=== PATIENT | male | born 1960 | race Caucasian/White ===

== ENCOUNTER 2016-06-16 23:00 | Observation (INO) | payer OTHER ==
[~2016-06-16] VITALS: Ht 190.5 cm; Wt 121.0 kg
[~2016-06-16 23:00] MED LIST: AMBIEN5 MG PO; DIFLUCAN200 MG PO; LISINOPRIL10 MG PO; MAG6464 MG PO; METFORMIN HCL850 MG PO; NICOTINE T21 MG/24 H TOP; NORTRIPTYLINE H10 MG PO; PERCOCET1 TA1 PO; PROTONIX40 MG PO; REGLAN10 MG PO; XANAX0.5 MG PO
[2016-06-17] VITALS (13 sets, daily range): BP systolic 117–163; BP diastolic 76–109
--- NOTE | 2016-06-17 00:59 | ED ORDER SUMMARY ---
..... Patient: DESHAUN QUEEN OrderSheet [facility] VisitID: [id number] [address] [place] [address] 56y, M Registration Date/Time: 06/16/2016 ORDER SHEET Weight: 108.8 kg (stated) Allergies: Gabapentin, Iodine GENERAL ORDERS: CBC w Diff Urgent (23:06/16/2016 Maryellen HAMLIN) (Ack 23:15 AMcQuoid ER Tech1) (1:15 SRedmond) CMP Urgent (:06/16/2016 Maryellen HAMLIN) (Ack 23:15 AMcQuoid ER Tech1) (1:15 SRedmond) PT with INR Urgent (:06/16/2016 Maryellen HAMLIN) (Ack 23:15 Rocio ER Tech1) (1:15 SRedmond) PTT Urgent (:06/16/2016 Maryellen HAMLIN) (Ack 23:15 AMcQuoid ER Tech1) (1:15 SRedmond) Breathalyzer (23:54 06/16/2016 Maryellen HAMLIN) (0:04 HSoule) MEDICATION ORDERS: IV FLUIDS: IV Saline Lock (:06/16/2016 Maryellen HAMLIN) (23:20 HSoule) Heparin IV : initial bolus 80 units/kg, then 18 units/kg/hr for 4h (HIGH ALERT MEDICATION, NOW); Urgent (:06/17/2016 Maryellen HAMLIN) (Ack 1:13 HSoule) (1:56 HSoule) IV NS : initial bolus 250 mL (1000 mL/hr), then none - (NOW) (01:33 06/17/2016 RCollier R.N. verbal order read back to Maryellen HAMLIN) (1:37 RCollier R.N.) ORDER SHEET NOTES: [Electronically signed by Collette Pagan (04:06/17/2016)] [Electronically signed by Jose Fonseca MD (12:48 06/20/2016)] [Electronically locked/signed by Collette Pagan (04:06/17/2016)]
--- NOTE | 2016-06-17 00:59 | ED CLINICAL REPORT ---
Clinical Report - Physicians/Mid Levels [facility] [address] [place] [address] 06/16/2016 23:00 [id number] Time Seen: 23:13. Arrived- By private vehicle. Historian- patient. History limited by intoxication. Physical Exam limited by intoxication. HISTORY OF PRESENT ILLNESS Chief Complaint: LOWER EXTREMITY PAIN. This started about 2 weeks ago and is still present. It was gradual in onset and has been constant. Severity is described as being severe. It has become recently worse. The quality is noted to be aching, "pain" and similar to prior episodes. Symptoms located in the area of the right ankle, right leg and right foot. The patient has had redness and swelling. ( patient was diagnosed with a deep vein thrombosis and was hospitalized at [facility] for several days. He left AGAINST MEDICAL ADVICE bbut was provided with a prescription for Lovenox and Coumadin. He says that he has been taking it as prescribed however his girlfriend says that he has missed multiple doses of the Coumadin.). Patient denies an injury. Similar symptoms previously: Recent medical care: The patient was seen recently at another facility in the emergency department and hospitalized. REVIEW OF SYSTEMS No chills, fever, sweats, chest pain or cough. No difficulty breathing, palpitations, abdominal pain, constipation or diarrhea. No nausea, vomiting or urinary problems. All systems otherwise negative, except as recorded above. PAST HISTORY Problems: Gastroenteritis. Cholelithiasis. Neuropathy. Gastroesophageal Reflux Disease. C. Difficile Colitis. GI Bleeding. Dehydration. Abdominal Pain. Hematuria. DVT - Deep Venous Thrombosis. Ruptured Achilles. Seizure. Hypomagnesemia. Gastritis. Hypokalemia. Diarrhea. Vomiting. Hypertension. Hypercholesterolemia. Diabetes Mellitus. Additional Surgeries: Back Surgery. Medications: Coumadin Oral. Lovenox Subcutaneous. Lisinopril Oral. Nortriptyline HCl Oral. Allergies: Gabapentin. Iodine. SOCIAL HISTORY Current every day heavy tobacco smoker (cigarette)- 1 pack per day. Alcohol use. Last drink was just prior to arrival. Patient is a longstanding alcoholic. Under the influence in E.D. No drug use. Residence: He resides in a trailer. His girlfriend lives in a different abode on the same property. he lives alone. FAMILY HISTORY Denies family medical history. ADDITIONAL NOTES The nursing notes have been reviewed. PHYSICAL EXAM Vital Signs: 06/16/2016 23:01 BP: 138/83. HR: 94. RR: 20. O2 saturation: 99%. Temp: 97.7 F. Pain level now: 910. Have been reviewed. Appearance: Alert. He appears intoxicated and has ETOH on breath. Eyes: Pupils equal, round and reactive to light. ENT: Pharynx normal. Neck: Neck supple. CVS: Normal heart rate and rhythm. Heart sounds normal. Respiratory: No respiratory distress. Breath sounds normal. Abdomen: Soft and nontender. No organomegaly. Skin: Skin intact. Skin warm and dry. Extremities: Right leg: mild erythema and moderate tenderness and swelling. Moderate right-sided calf tenderness. LABS, X-RAYS, AND EKG Laboratory Tests: CBC w Diff: (DEX: 06/16/2016 23:15) ( [facility] 06[facility]16[facility] 23:37) Final results Test Result Flag Units (Reference) WHITE BLOOD COUNT 7.4 K/uL (4.5-11.5) RED BLOOD COUNT 3.80 L M/uL (4.50-5.90) HEMOGLOBIN 12.8 L gm/dL (13.5-17.5) HEMATOCRIT 37.5 L % (41.0-53.0) MEAN CELL VOLUME 99 fL (80-100) MEAN CORPUSCULAR HGB 34 pg (26-34) MEAN CORPUSCULAR HGB CONC 34 g/dL (31-37) RED CELL DISTRIBUTION WIDTH 17.6 H % (11.6-14.8) PLATELET COUNT 196 K/uL (150-400) LYMPH % 49.7 H % (25-40) MONO % 5.8 % (3-14) GRANULOCYTE % 44.5 PT with INR: (DEX: 06/16/2016 23:15) ( MsgRcvd 06/16/2016 23:33) Final results Test Result Flag Units (Reference) INR 1.1 (0.8-1.2) Low Intensity Therapy: INR 1.5-2.0 PT range 18.5-23.1Mod.Intensity Therapy: INR 2.0-3.0 PT range 23.1-31.5High Intensity Therapy: INR 2.5-3.5 PT range 27.4-35.5High Intensity Therapy 2: INR 3.0-4.0 PT range 31.5-39.3 APTT 31 SECONDS (24-34) CMP: (DEX: 06/16/2016 23:15) ( MsgRcvd 06/17/2016 00:25) Final results Test Result Flag Units (Reference) GLUCOSE 149 H mg/dL (70-110) BUN 14 mg/dL (7-18) CREATININE 0.8 mg/dL (0.6-1.3) Estimated GFR >60 mL/min Estimated GFR- >60 mL/min Note: Persistent reduction over 3 months in eGFR<60 mL/min/1.73 m2 defines CKD. Patients with eGFR values>=60 mL/min/1.73 m2 may also have CKD if evidence ofpersistent proteinuria. Additional information may be foundat www.kidney.org. SODIUM 142 mmol/L (136-145) POTASSIUM 3.8 mmol/L (3.5-5.1) CHLORIDE 106 mmol/L (98-107) CARBON DIOXIDE 30 mmol/L (21-32) CALCIUM 8.5 mg/dL (8.5-10.1) TOTAL PROTEIN 7.1 g/dL (6.4-8.2) ALBUMIN 3.3 g/dL (3.3-5.0) BILIRUBIN, TOTAL 0.1 mg/dL (0.0-1.0) ALKALINE PHOSPHATASE 184 H U/L (46-116) AST (SGOT) 38 H U/L (15-37) ALT (SGPT) 20.4 U/L (12-78) . PROGRESS AND PROCEDURES Course of Care: Patient is stable. Discussed case with on-call health care provider, (Elaina). Reviewed test results and need for additional work-up. Agreed upon treatment plan, need for patient follow-up and decision to place in observation. Health care provider will see patient in hospital. Consult obtained. Dr. Hull - he says that he can evaluate the patient in the morning to evaluate whether he is a candidate for an IVC filter. Case discussed. Phone consult only. Will see patient in the hospital. Patient/family counseled. Old medical records reviewed. (from [facility]). Disposition orders written (in [facility]). Disposition: Admitted. CLINICAL IMPRESSION Deep venous thrombosis of the right lower extremity. Alcohol intoxication. medication noncompliance. (Electronically signed by Jose Fonseca MD 06/20/2016 12:48)
--- NOTE | 2016-06-17 00:59 | ED NURSING NOTES ---
Clinical Report - Nurses [facility] [address] [place] [address] 06/16/2016 23:00 Patient: DESHAUN QUEEN TRIAGE Triage time 23:02 Jun 16 2016. Acuity: LEVEL 3. Chief Complaint: (DVT/Pain). SEPSIS SCREEN: Sepsis Screen: negative. Negative (no infection suspected/documented). RICHIE COMA SCORE: Richie Coma Scale: 15- eyes open spontaneously (4); best verbal response- oriented x 4 (5); best motor response- obeys commands (6). --23:07 Collette Pagan 23:01 06/16/16. BP: 138/83. HR: 94. RR: 20. O2 saturation: 99% on room air. Temp: 97.7 F (oral). Pain level now: 11/14. --23:07 Collette Pagan. Weight: 108.8 kg stated. Height/Length: 75 inches Per Patient. BMI: 30. --23:06 Collette Pagan. Medications Nortriptyline HCl Oral. --23:06 Collette Pagan Lisinopril Oral. --23:06 Collette Pagan Lovenox Subcutaneous. --23:06 Collette Pagan Coumadin Oral. --23:06 Collette Pagan. Medication/allergy information source: the patient. --23:07 Collette Pagan. Allergies Gabapentin. Iodine. --23:07 Collette Pagan. History Arrived by EMS. Historian: patient. Unaccompanied. ( Patient was diagnosed and treated for DVT in his right calf. He was treated at [facility]. He was started on anti-coagulation. He reports increasing pain that began about five hours ago.). Treatment INSIDE ACCOUNT EXECUTIVE: See EMS report. EMS treatment INSIDE ACCOUNT EXECUTIVE verbally communicated and report reviewed. See report. BP: 140 / 92. HR: 90. O2 saturation: 97 room air. SOCIAL HX: Heavy tobacco smoker (cigarette)- 1 pack per day. Occasional alcohol use. No drug use. No infectious disease exposure. ABUSE ASSESSMENT: No report of abuse. SELF HARM ASSESSMENT: A self harm assessment was performed. The patient answered "no" to the question "Have you recently felt down, depressed, or hopeless?", "Have you noticed less interest or pleasure in doing things?", "Do you have thoughts of harming or killing yourself?", "Are you here because you tried to hurt yourself?", "Have you ever tried to hurt yourself before today?", "Have you recently had thoughts about harming or killing others?" and "Do you have any dangerous items in your possession?". FALL RISK ASSESSMENT: Fall risk assessment completed. No fall risk identified. NUTRITIONAL RISK ASSESSMENT: The nutritional risk assessment revealed no deficiencies. FUNCTIONAL ASSESSMENT: Functional assessment: no impairments noted. LEARNING NEEDS ASSESSMENT: The learning needs assessment revealed no barriers. --23:07 Collette Pagan. PROBLEMS: Gastroenteritis. Cholelithiasis. Neuropathy. Gastroesophageal Reflux Disease. C. Difficile Colitis. GI Bleeding. Dehydration. Abdominal Pain. Hematuria. Abnormal Test. DVT - Deep Venous Thrombosis. Ruptured Achilles. Tetanus Status. Seizure. Hypomagnesemia. Gastritis. Hypokalemia. Diarrhea. Vomiting. Immunizations. Hypertension. Hypercholesterolemia. Diabetes Mellitus. --23: Collette Pagan Cholelithiasis [RuleOut]. --23:07 Collette Pagan. ADDITIONAL SURGERIES: Back Surgery. --23:07 Collette Pagan. Interventions ID band on patient. To treatment room. --23:07 Collette Pagan. PHYSICAL ASSESSMENT To room via stretcher. Patient gowned. GENERAL / NEURO / PSYCH: Alert. Oriented X 4. Appears in pain. Mood/affect abnormal (tearful). RESPIRATORY: Respirations not labored. CVS: Normal sinus rhythm noted. EXTREMITIES: 2+ pitting edema of the right lower extremity involving the foot, ankle and lower leg; 1+ pitting edema of the left lower extremity involving the foot, ankle and lower leg. Pain with weight bearing on RLE. SKIN: Skin is warm and dry. --23:09 Collette Pagan. NURSING PROGRESS NOTES The initial plan of care for this patient has been created This plan of care was discussed with the patient. Pulse oximeter and NIBP monitor placed on patient; monitor alarms on. Patient gowned. Reassurance given to the patient. Two patient identifiers checked. Call light placed in reach. Side rails up x 1. Bed placed in lowest position. Brakes of bed on. Patient ready for evaluation- chart flagged and ED physician notified. --23:10 Collette Pagan 23:20 06/16/2016 Site #1 started via IV in the left antecubital space with an 20g angiocath, with aseptic technique and good blood return; one attempt. Blood drawn: rainbow set. Labeled in the presence of the patient and sent to the lab. Saline lock flushed with 10 mL saline. --23:20 Collette Pagan Patient ID band checked for patient name and birthdate: patient confirmed. Blood samples drawn from the left antecubital space peripheral IV site with Vacutainer by nurse ; labeled in presence of the patient and sent to lab: rainbow set. Line flushed with 10 mL normal saline post blood draw. --23:20 Collette Pagan 23:42 Patient call light answered. Patient requesting RN, when explained that RN was with another patient and assistance offered by this tech, patient delinced. --23:56 McQuoid, Carol, ER Tech1 ( Patient asking for pain medication. Patient reassured that provider would be in to evaluate him shortly.). --23:58 Collette Pagan ( Writing RN and RN Cathi Beal responded to a patient calling out. RN's into room to find patient on floor. Patient states, " I needed to get my phone off the floor". Patient assisted back into bed. Provider notified. Patient asked to stay in bed unless assisted by staff.). --00:00 Collette Pagan ( Breathalyzer performed JOSR .252). --00:02 Melecio Pantoja ( Lab called RN to notify that dilutions will need to be made on patients blood.). --00:06 Collette Pagan ( Breathalyzer performed JOSR .247). --00:42 Melecio Pantoja 00:47 06/17/16. BP: 141/83. HR: 86. RR: 20. O2 saturation: 97% on room air. --00:47 Collette Pagan 01:23 06/17/2016 Site #2 started via IV in the right antecubital space with an 20g angiocath, with aseptic technique and good blood return; one attempt. Saline lock flushed with 10 mL saline (UltraSound guided IV start.). --01:23 Ragini Juarez R.N. 01:32 06/17/2016 Started bag #1 250 mL IV Fluids IV NS (Saline); at 999 mL/hr via site #2 via IV pump. Allergies verified and confirmed 5 rights. IV patency established. IV site checked: no pain, redness, or swelling. IV flushed thoroughly pre- and post-medication administration. --01:37 Ragini Juarez R.N. 01:36 06/17/2016 Site #2. Pain and swelling noted. Infiltration Scale: Grade 3- edema less than 1 inch with mild to moderate pain. --01:38 Ragini Juarez R.N. 01:37 06/17/2016 Site #2 removed. Catheter intact. Pressure dressing and bandage applied. --01:38 Ragini Juarez R.N. 01:37 06/17/2016 IV Fluids IV NS Discontinued: bag #1 STOPPED. Total amount infused: 50 mL (Pt complained of pain at IV site. localized swelling noted.). --01:37 Ragini Juarez R.N. 01:56 06/17/2016 Site #3 started via IV in the right wrist with an 22g angiocath, with aseptic technique and good blood return; one attempt. Saline lock flushed with 10 mL saline. --01:56 Collette Pagan 01:56 06/17/2016 Heparin IVP 8700 unit given over 1 minute(s) via site #3. Allergies verified and confirmed 5 rights. IV patency established. IV site checked: no pain, redness, or swelling. IV flushed thoroughly pre- and post-medication administration. --01:56 Collette Pagan <<STRICKEN ENTRY-- 01:56 06/17/2016 Started bag #1 500 mL IV Fluids IV NS (Saline); at 1950 unit/hr over 4 hour(s) via site #3 via IV pump. Allergies verified and confirmed 5 rights. IV patency established. IV site checked: no pain, redness, or swelling. IV flushed thoroughly pre- and post-medication administration. --01:56 Collette Pagan --END STRIKE>> Correction. --01:57 Collette Pagan 01:59 06/17/2016 Heparin IVP 1950 unit given over 1 hour(s) via site #3. Allergies verified and confirmed 5 rights. IV patency established. IV site checked: no pain, redness, or swelling. IV flushed thoroughly pre- and post-medication administration. IVP given by RN (500 ml bag of heparin containing [id number] U. Running 1950 U/hr for four hours.). --:59 Collette Pagan ( Provider aware of vitals). --02:00 Collette Pagan 01:59 06/17/16. BP: 124/74. HR: 86. RR: 20. O2 saturation: 93% on room air. Pain level now: 11/14. --02:00 Collette Pagan. DISPOSITION / DISCHARGE 02:06/17/16. Condition at departure: stable. Fall risk assessment completed. Risk factors identified include patient history of fall. Fall interventions initiated. Patient placed on stretcher. Side rails up x1. Brakes on Bed in low position. Patient identified as a fall risk by ID band. Call light in reach of patient. Instructed not to get up without assistance. Report was given to a nurse via a phone call. All questions were answered. Report was acknowledged and care was transferred. (Daphnie CASTAÑEDA). Bed obtained. Patient's personal items include: shirt, pants, shoes and cell phone; items were given to the patient and transported with the patient. --02:09 Collette Pagan 02:06/17/16. BP: 126/80. HR: 88. RR: 20. O2 saturation: 95% on room air. Temp: 98 F (oral). Pain level now: 11/14. --02:10 Collette Pagan 02:06/17/2016 Site #[address] upon admission; patent, no pain and no signs of infection or infiltration; flushes easily. --02:10 Collette Pagan 02:06/17/2016 Site #[address] upon admission; patent, no pain and no signs of infection or infiltration. No blood return present. Converted to saline lock and flushed with 10 mL saline. --02:10 Collette Pagan Transported via stretcher by tech with IV. --02:20 Collette Pagan. Locked/Released at 06/17/2016 4:23 by Collette Pagan,
--- NOTE | 2016-06-17 00:59 | ED CLINICAL REPORT ---
Clinical Report - Physicians/Mid Levels [facility] [address] [place] [address] 06/16/2016 23:00 [id number] Time Seen: 23:13. Arrived- By private vehicle. Historian- patient. History limited by intoxication. Physical Exam limited by intoxication. HISTORY OF PRESENT ILLNESS Chief Complaint: LOWER EXTREMITY PAIN. This started about 2 weeks ago and is still present. It was gradual in onset and has been constant. Severity is described as being severe. It has become recently worse. The quality is noted to be aching, "pain" and similar to prior episodes. Symptoms located in the area of the right ankle, right leg and right foot. The patient has had redness and swelling. ( patient was diagnosed with a deep vein thrombosis and was hospitalized at [facility] for several days. He left AGAINST MEDICAL ADVICE bbut was provided with a prescription for Lovenox and Coumadin. He says that he has been taking it as prescribed however his girlfriend says that he has missed multiple doses of the Coumadin.). Patient denies an injury. Similar symptoms previously: Recent medical care: The patient was seen recently at another facility in the emergency department and hospitalized. REVIEW OF SYSTEMS No chills, fever, sweats, chest pain or cough. No difficulty breathing, palpitations, abdominal pain, constipation or diarrhea. No nausea, vomiting or urinary problems. All systems otherwise negative, except as recorded above. PAST HISTORY Problems: Gastroenteritis. Cholelithiasis. Neuropathy. Gastroesophageal Reflux Disease. C. Difficile Colitis. GI Bleeding. Dehydration. Abdominal Pain. Hematuria. DVT - Deep Venous Thrombosis. Ruptured Achilles. Seizure. Hypomagnesemia. Gastritis. Hypokalemia. Diarrhea. Vomiting. Hypertension. Hypercholesterolemia. Diabetes Mellitus. Additional Surgeries: Back Surgery. Medications: Coumadin Oral. Lovenox Subcutaneous. Lisinopril Oral. Nortriptyline HCl Oral. Allergies: Gabapentin. Iodine. SOCIAL HISTORY Current every day heavy tobacco smoker (cigarette)- 1 pack per day. Alcohol use. Last drink was just prior to arrival. Patient is a longstanding alcoholic. Under the influence in E.D. No drug use. Residence: He resides in a trailer. His girlfriend lives in a different abode on the same property. he lives alone. FAMILY HISTORY Denies family medical history. ADDITIONAL NOTES The nursing notes have been reviewed. PHYSICAL EXAM Vital Signs: 06/16/2016 23:01 BP: 138/83. HR: 94. RR: 20. O2 saturation: 99%. Temp: 97.7 F. Pain level now: 910. Have been reviewed. Appearance: Alert. He appears intoxicated and has ETOH on breath. Eyes: Pupils equal, round and reactive to light. ENT: Pharynx normal. Neck: Neck supple. CVS: Normal heart rate and rhythm. Heart sounds normal. Respiratory: No respiratory distress. Breath sounds normal. Abdomen: Soft and nontender. No organomegaly. Skin: Skin intact. Skin warm and dry. Extremities: Right leg: mild erythema and moderate tenderness and swelling. Moderate right-sided calf tenderness. LABS, X-RAYS, AND EKG Laboratory Tests: CBC w Diff: (DEX: 06/16/2016 23:15) ( [facility] 06/16/2016 23:37) Final results Test Result Flag Units (Reference) WHITE BLOOD COUNT 7.4 K/uL (4.5-11.5) RED BLOOD COUNT 3.80 L M/uL (4.50-5.90) HEMOGLOBIN 12.8 L gm/dL (13.5-17.5) HEMATOCRIT 37.5 L % (41.0-53.0) MEAN CELL VOLUME 99 fL (80-100) MEAN CORPUSCULAR HGB 34 pg (26-34) MEAN CORPUSCULAR HGB CONC 34 g/dL (31-37) RED CELL DISTRIBUTION WIDTH 17.6 H % (11.6-14.8) PLATELET COUNT 196 K/uL (150-400) LYMPH % 49.7 H % (25-40) MONO % 5.8 % (3-14) GRANULOCYTE % 44.5 PT with INR: (DEX: 06/16/2016 23:15) ( MsgRcvd 06/16/2016 23:33) Final results Test Result Flag Units (Reference) INR 1.1 (0.8-1.2) Low Intensity Therapy: INR 1.5-2.0 PT range 18.5-23.1Mod.Intensity Therapy: INR 2.0-3.0 PT range 23.1-31.5High Intensity Therapy: INR 2.5-3.5 PT range 27.4-35.5High Intensity Therapy 2: INR 3.0-4.0 PT range 31.5-39.3 APTT 31 SECONDS (24-34) CMP: (DEX: 06/16/2016 23:15) ( MsgRcvd 06/17/2016 00:25) Final results Test Result Flag Units (Reference) GLUCOSE 149 H mg/dL (70-110) BUN 14 mg/dL (7-18) CREATININE 0.8 mg/dL (0.6-1.3) Estimated GFR >60 mL/min Estimated GFR- >60 mL/min Note: Persistent reduction over 3 months in eGFR<60 mL/min/1.73 m2 defines CKD. Patients with eGFR values>=60 mL/min/1.73 m2 may also have CKD if evidence ofpersistent proteinuria. Additional information may be foundat www.kidney.org. SODIUM 142 mmol/L (136-145) POTASSIUM 3.8 mmol/L (3.5-5.1) CHLORIDE 106 mmol/L (98-107) CARBON DIOXIDE 30 mmol/L (21-32) CALCIUM 8.5 mg/dL (8.5-10.1) TOTAL PROTEIN 7.1 g/dL (6.4-8.2) ALBUMIN 3.3 g/dL (3.3-5.0) BILIRUBIN, TOTAL 0.1 mg/dL (0.0-1.0) ALKALINE PHOSPHATASE 184 H U/L (46-116) AST (SGOT) 38 H U/L (15-37) ALT (SGPT) 20.4 U/L (12-78) . PROGRESS AND PROCEDURES Course of Care: Patient is stable. Discussed case with on-call health care provider, (Elaina). Reviewed test results and need for additional work-up. Agreed upon treatment plan, need for patient follow-up and decision to place in observation. Health care provider will see patient in hospital. Consult obtained. Dr. Hull - he says that he can evaluate the patient in the morning to evaluate whether he is a candidate for an IVC filter. Case discussed. Phone consult only. Will see patient in the hospital. Patient/family counseled. Old medical records reviewed. (from [facility]). Disposition orders written (in [facility]). Disposition: Admitted. CLINICAL IMPRESSION Deep venous thrombosis of the right lower extremity. Alcohol intoxication. medication noncompliance. (Electronically signed by Jose Fonseca MD 06/20/2016 12:48)
--- NOTE | 2016-06-17 00:59 | ED ORDER SUMMARY ---
..... Patient: DESHAUN QUEEN OrderSheet [facility] VisitID: [id number] [address] [place] [address] 56y, M Registration Date/Time: 06/16/2016 ORDER SHEET Weight: 108.8 kg (stated) Allergies: Gabapentin, Iodine GENERAL ORDERS: CBC w Diff Urgent (23:06/16/2016 Maryellen HAMLIN) (Ack 23:15 AMcQuoid ER Tech1) (1:15 SRedmond) CMP Urgent (:06/16/2016 Maryellen HAMLIN) (Ack 23:15 AMcQuoid ER Tech1) (1:15 SRedmond) PT with INR Urgent (:06/16/2016 Maryellen HAMLIN) (Ack 23:15 Rocio ER Tech1) (1:15 SRedmond) PTT Urgent (:06/16/2016 Maryellen HAMLIN) (Ack 23:15 AMcQuoid ER Tech1) (1:15 SRedmond) Breathalyzer (23:54 06/16/2016 Maryellen HAMLIN) (0:04 HSoule) MEDICATION ORDERS: IV FLUIDS: IV Saline Lock (:06/16/2016 Maryellen HAMLIN) (23:20 HSoule) Heparin IV : initial bolus 80 units/kg, then 18 units/kg/hr for 4h (HIGH ALERT MEDICATION, NOW); Urgent (:06/17/2016 Maryellen HAMLIN) (Ack 1:13 HSoule) (1:56 HSoule) IV NS : initial bolus 250 mL (1000 mL/hr), then none - (NOW) (01:33 06/17/2016 RCollier R.N. verbal order read back to Maryellen HAMLIN) (1:37 RCollier R.N.) ORDER SHEET NOTES: [Electronically signed by Collette Pgaan (04:06/17/2016)] [Electronically signed by Jose Fonseca MD (12:48 06/20/2016)] [Electronically locked/signed by Collette Pagan (04:06/17/2016)]
[2016-06-17] MEDS ORDERED: SUMATRIPTAN SUC50 MG PO (06:54)
--- NOTE | 2016-06-17 09:36 | HISTORY AND PHYSICAL ---
ADMITTED: 06/17/2016 CHIEF COMPLAINT: 1. Right foot pain. HISTORY OF PRESENT ILLNESS: This is a 56-year-old male who had pneumonia 1 month ago and was hospitalized at [facility] and then returned to [place] last Tuesday with complaints of right lower extremity swelling, diagnosed with a deep vein thrombosis, hospitalized until Tuesday, discharged on Tuesday. He started Coumadin on Tuesday claims he has been taking his Lovenox. Despite that claim, his girlfriend states that all of his Coumadin are still in the bottle since Tuesday. The patient presented to the emergency department last night with complaints of worsening right foot pain and requesting pain medications. The patient does state that he quit drinking 2 months ago, but last night when the pain got so bad he relapsed and drank alcohol again. Overnight, the patient has started complaining of left-side pain as well that is constant, but waxes and wanes. The patient does state that he has diarrhea and has for the past 3 years, which is not worse than it has been. He denies any nausea, vomiting, or constipation. He denies any dysuria. He is not having any heartburn currently, but does have GERD and takes pantoprazole. MEDICAL/SURGICAL HISTORY: Past medical history: Insomnia, GERD, history of DVT after laying in bed from an Achilles tear numerous years ago. Past surgical history: Laparoscopic cholecystectomy several months ago. MEDICATIONS: 1. Nortriptyline, unknown dose, 3 tabs p.o. every night at bedtime. 2. Ambien p.r.n. 3. Xanax. 4. Protonix. 5. Zantac. The patient did not know any of the dosages of these medications; however, he does go to the [facility] in [place]. ALLERGIES: 1. GABAPENTIN. 2. IODINE. SOCIAL HISTORY: The patient lives alone. He denies any drug use. He does have a history of alcohol abuse, quit 2 months ago, and then relapsed last night. The patient has [id number] of smoking and continues to smoke at a rate of 1 pack per day. FAMILY HISTORY: Sister with hypertension and type 2 diabetes. Brother from a suicide. Mother with some type of "blood cancer" per the patient. REVIEW OF SYSTEMS: Full 12 poiont ROS completed and negative except as positive per HPI. PHYSICAL EXAMINATION: VITAL SIGNS: Blood pressure 124/93, pulse 92, respiratory rate is 22, O2 saturation 99% on room air, T-max is 36.4 degrees Celsius. GENERAL: This is a well-appearing male, lying in bed, in no apparent distress, sleeping. HEENT: Head is atraumatic, normocephalic. Pupils are equal, round, and reactive to light with accommodation bilaterally. Extraocular muscles are intact bilaterally. Oropharynx is nonerythematous without exudates and moist. NECK: Trachea is midline. There is no JVD. HEART: S1, S2, regular rate and rhythm. No S3, S4, murmurs, gallops, or rubs. LUNGS: Mild expiratory wheezing diffusely, but no crackles. ABDOMEN: Soft, nondistended without hepatosplenomegaly or masses. Bowel sounds are active. The patient does have some very mild left-sided tenderness, but without peritoneal signs and he has some left flank pain. He has no left upper quadrant pain. The patient does have 2+ right lower extremity edema and trace to 1+ lower extremity edema on the left. LAB/IMAGING: Sodium is 142, potassium 3.8, chloride 106, bicarbonate of 30, BUN of 14, creatinine of 0.8, glucose of 149, calcium of 8.5. Total protein is 7.1, albumin 3.3, total bilirubin 0.1, alkaline phosphatase of 184, AST of 38, ALT of 20.4. White blood cell count 7.4, hemoglobin of 12.8, hematocrit of 31.5, platelets of 196. INR 1.1. IMPRESSION: 1. This is a 56-year-old male with a recent history of pneumonia one month ago and now deep vein thrombosis diagnosed on Tuesday, who has a history of alcohol abuse and was intoxicated and not taking his Coumadin. There is significant concern that this patient may not reliably take his Coumadin and/or Lovenox due to his substance abuse. The patient was acutely intoxicated when he was admitted last night as it was deemed that he was not safe to be discharged home. PLAN: 1. Fluids, electrolytes, nutrition. The patient will be n.p.o. in anticipation of possible surgery later today. He will get a banana bag due to his alcohol abuse. 2. Hematology. The patient has a known deep vein thrombosis in his lower extremity and it is questionable whether he is reliably taking his Lovenox and/or Coumadin. It has been suggested that an IVC filter be considered and surgery has been consulted for this. 3. Gastrointestinal/genitourinary: The patient is complaining of left lateral flank pain. One might consider a kidney stone versus pyelonephritis versus intestinal etiology versus less likely pancreatitis. Lipase and amylase have been added to his labs. The patient also has known gastroesophageal reflux disease and is n.p.o. His home dose of pantoprazole has been restarted. 4. Psychiatric: Substance abuse. The patient will be on the ETOH withdrawal protocol. 5. Prophylaxis: The patient is currently on heparin and is on pantoprazole for gastrointestinal prophylaxis. 6. CODE STATUS: FULL CODE.
--- NOTE | 2016-06-17 16:02 | CONSULTATION REPORT ---
DATE OF CONSULTATION: 06/17/2016 REFERRING PHYSICIAN: Migdalia Delaney MD CONSULTING PHYSICIAN: Theo Hull MD CHIEF COMPLAINT: 1. DVT of right leg HISTORY OF PRESENT ILLNESS: The patient is a 56-year-old man who was diagnosed with deep vein thrombosis in the right leg when he presented to the [place] emergency department with leg pain and swelling. He reports a remote history of a deep vein thrombosis on the left leg many years ago when he tore his Achilles tendon and was treated at that time with anticoagulants. On this occasion, he was started on Lovenox and started Coumadin 3 days ago. Apparently his girlfriend reports he did not actually take any of his Coumadin. He was in the emergency department with worsening foot pain. He also has a history of alcoholism and quit drinking about 2 months ago. There is a previous history of multiple GI bleeds and multiple endoscopies. He apparently started drinking when the pain in his leg got worse. There was a report in the chart of hematuria, but in this case, nausea, vomiting, and fear of recurrent GI bleeding seem to be the main motivating factors for this consultation. There was a request made to consider placement of a [place] filter due to this patient's prohibitive risk of bleeding and his presence or worrisome deep vein thrombosis. MEDICAL/SURGICAL HISTORY: Medical history of insomnia, GERD, DVT. Past surgery: Laparoscopic cholecystectomy a few months ago. MEDICATIONS: 1. Nortriptyline, dose unknown. 2. Ambien -------. 3. Xanax -------. 4. Protonix. 5. Zantac. ALLERGIES: 1. GABAPENTIN. 2. IODINE. SOCIAL HISTORY: The patient lives alone. He does not use drugs other than alcohol, quit about 2 months ago, but had a relapse. He smokes about 1 pack per day. FAMILY HISTORY: His brother was a suicide. Mother had some type of blood malignancy. Sister has hypertension and diabetes. REVIEW OF SYSTEMS: A multipoint review of systems was not documented at this time, but the patient denies other problems other than the sore leg. PHYSICAL EXAMINATION: GENERAL: He is alert and cooperative. He does not appear to be shaky or tremulous. HEENT: His ears and nose demonstrate no gross external lesions. Eyes are equal. He is anicteric. NECK: Without palpable mass or thyromegaly. CHEST: Clear, without wheeze or rales. HEART: Regular, without murmur or gallop. ABDOMEN: Reveals no ascites. No hepatosplenomegaly that I can palpate. No caput medusae. EXTREMITIES: The lower extremity reveals tenderness in the calf, which extends about a third of the way up the posterior thigh, but not all the way to the groin. There is some mild edema also seen. LAB/IMAGING: Lab tests were reviewed. I do not see an INR currently in the chart. The patient has some left flank pain additionally noted and was thought to perhaps have a kidney stone as a potential etiology. His studies were reviewed, and imaging studies on hand all seem to date from 2012 and 2014. In 2015, he had renal ultrasound due to hematuria at that point, with no clear etiology identified. His lab tests show a hemoglobin and hematocrit of 11.5 and 33.8, white count of 6.4, platelet count is 169. Coagulation studies are not on the computer. His chemistries show normal protein , mildly elevated AST and alkaline phosphatase, normal amylase and lipase. IMPRESSION: 1. Deep vein thrombosis 2. Alcoholism and history of gastrointestinal bleeds PLAN: At this point, I discussed with the patient the pros and cons of placing a [place] filter. The patient is interested in proceeding with one, as he is worried about the risk of a pulmonary embolism. I explained to him that alternatives at this point would the use of anticoagulants, but that this could also entail a significant risk of gastrointestinal bleeding, especially given his history. The patient would prefer to have a Misty in place at this point. I explained to him some of the risks, such as displacement, perforation, embolization, eventual failure. I explained we would use a percutaneously removable Misty, and that this could be removed at some point in the future if he so desired. He was made aware of some of the local risks, such as bleeding at the puncture site, premature or improper location, injury to local structures of the puncture site, and other such as potential problems. He would like to proceed as described.
--- NOTE | 2016-06-17 17:42 | DIAGNOSTIC IMAGING REPORT ---
PROCEDURE: XR FLUOROSCOPY UP TO 1 HOUR INDICATION: PLACEMENT OF [place]ARO FILTER TECHNIQUE: C-arm fluoroscopy provided to Dr. Hull for placement of IVC filter. Fluoroscopy time 1.21 minutes (63.9 mGy). COMPARISON: None. FINDINGS: Abdominal radiograph demonstrates a surgical clamp overlying the lumbar spine (reportedly at the L2 level). Subsequently, there is placement of a [place] filter at the L2 level. IMPRESSION: 1. C-arm fluoroscopy for placement of inferior vena cava filter (performed by Dr. Hull).
--- NOTE | 2016-06-17 18:47 | Progress Note ---
Subjective General has left flank pain no chest pain or shortnessof breath Physical Exam Vital Signs / I&Os Vital Signs Date Time Temp Pulse Resp B/P Pulse O2 O2 Flow FiO2 Ox Delivery Rate 06/17 1830 97.5 96 18 157/100 96 Nasal 1.0 Cannula 06/17 1815 97.5 85 18 163/101 97 Nasal 1.0 Cannula 06/17 1802 97.9 87 18 150/103 98 Nasal 1.0 Cannula 06/17 1740 85 11 163/84 100 06/17 1735 97.9 86 10 155/90 95 06/17 1730 90 12 158/86 95 06/17 1725 91 12 158/90 95 06/17 1720 92 15 155/90 94 06/17 1715 84 17 153/86 100 06/17 1710 96.8 82 17 146/89 98 Mask 6.0 06/17 1435 97.9 78 18 134/90 96 Room Air 06/17 1015 Room Air 06/17 1010 97.5 89 18 120/80 93 Room Air 06/17 0629 97.5 83 20 140/100 94 Room Air 06/17 0241 97.5 92 22 124/93 99 Room Air General Appearance Alert, Oriented X3, Cooperative, No acute distress Lungs Clear to auscultation Cardiovascular Regular rate and rhythm Abdomen Soft, No tenderness, No guarding Extremities No cyanosis, No edema, Normal pulses Neurological No lateralizing signs Assessment and Plan Problem List 1. DVT (deep venous thrombosis) Plan patient had IVC filter placed today continue lovenox and coumadin check INR in am has hx of xchronic etoh use monitor for signs of withdrawal 2. Subtherapeutic anticoagulation 3. Alcohol intoxication
--- NOTE | 2016-06-17 20:11 | OPERATIVE REPORT ---
DATE OF SURGERY: 06/17/2016 SURGEON: Theo Hull MD PREOPERATIVE DIAGNOSES: 1. Recurrent deep vein thrombosis 2. History of gastrointestinal bleed POSTOPERATIVE DIAGNOSIS: 1. deep vein thrombosis 2. history of recurrent GI bleeds PROCEDURE PERFORMED: 1. Inferior vena caval filter placement ([place]) ANESTHESIA: General. INDICATIONS: The patient is a 56-year-old man who presented with leg pain and deep vein thrombosis. He had a remote previous thrombosis on the other side. The patient was unreliable for use of Coumadin and also had a long history of alcoholism. The patient has had multiple upper GI endoscopies for gastrointestinal bleeds and was felt to be poor risk for conventional oral anticoagulation. SURGICAL TECHNIQUE: The patient was taken to the operating room by his choice, a general anesthetic was administered and patient prepped and draped in usual sterile fashion. Prior to prepping the patient, however, an examination was done with the SonoSite Doppler demonstrating patency and lack of clot in the groin, common femoral vein on the left side, which is the asymptomatic side. After sterile prep and drape, fluoroscopy was used to gina the L1-L2 disk location. Hemostat was placed at this location after counting the disks. The femoral vein was entered on first pass under ultrasonic guidance and the guidewire placed in the vena cava. The introducer sheath and dilator were inserted and positioned below the L2 vertebral body and a venogram performed with contrast. Note, the patient had listed a contrast allergy, but has had multiple CT scans and other contrast- related procedures more recently with no reaction to contrast. The contrast study demonstrated a generous vena cava, but less than 28 mm. The dilator was removed and a filter advanced. The filter was placed at about the L2 vertebral body below the renal arteries, but in the linear part of the vena cava and above the vena caval confluence with the iliacs. Heparinized flushing was used throughout the procedure to prevent buildup of clots in the apparatus. The introducer sheath was withdrawn, leaving the vena caval filter in a correct position. This was observed under fluoroscopy demonstrating stability and proper placement. The sheath was removed and pressure held at the groin until hemostasis was complete. Dressings were placed and the patient left in good condition.
[2016-06-18 02:35] VITALS: BP 101/59
[2016-06-18 06:38] VITALS: BP 133/89
[2016-06-18 10:10] VITALS: BP 132/79
--- NOTE | 2016-06-18 10:43 | Provider's Discharge Care Plan ---
Problem, Goal, Plan Problem List 1. Subtherapeutic anticoagulation Instructions: - c/w lovenox injections as you were taught - and continue taking the coumadin - follow up with your primary care doctor Dr Ricks within the next few days and obtain INR level 2. DVT (deep venous thrombosis) Instructions: Take meds as directed 3. Pulmonary embolism Instructions: Take meds as directed
[2016-06-18] MEDS ORDERED: PERCOCET1 TA1 PO ×2 (10:46→16:57)
--- NOTE | 2016-06-18 12:13 | Discharge Summary ---
Discharge Summary Report Admit Date 06/17/16 Discharge Date 06/18/16 Admission Diagnosis pulmonary embolus Discharge Diagnosis dvt and pulmonary embolus Brief History please refer to admission h&p for history Hospital Course Patient was admitted for PE after patient did not take any of his anticoagulation. Patient was admitted started on lovenox. Patient given his repeat episode of blood clot had a IVC filter placed. Patient tolerated the procedure well without any problems and resumed his anticoagulation. Patient at this point is ready for discharge. Patient will resume lovenox and coumadin. He will obtain an INR level here and will either bring it up with his primary care doctor or he was told he could even find me and I would be able to tell him to continue the coumadin or not. Patient will follow up with his PCP on the . General Appearance Alert, Oriented X3, No acute distress Lungs Clear to auscultation Cardiovascular Normal S1, Normal S2, Gallops, Rubs Abdomen Soft, No tenderness Neurological Normal speech, Normal tone, Sensation intact, Cranial nerves 3-12 NL Discharge Instructions/Meds - pt was advised to resume his lovenox injections and coumadin - he was told to have an INR drawn on Tuesday and to bring results to either me or his primary care doctor - he has an appointment for his primary care doctor on 06/24
--- NOTE | 2016-06-20 12:48 | ED MAR SUMMARY ---
..... Medication Administration Record [facility] [address] [place] [address] Patient: DESHAUN QUEEN Visit ID: [id number] 56y, M Weight: 108.8 kg Height/Length: 75 in BMI: 30 ALLERGIES: Gabapentin, Iodine Start 01:32 06/17/2016 Ragini Juarez RJobNJob, Stop 01:37 06/17/2016 Ragini Juarez R.N. Medication Administered: IV NS (SALINE), Dose: IV Fluids, Rate: 999 mL/hr, Dispensed: 250 mL bag, Site: #2 right AC. Medication Ordered: IV NS : initial bolus 250 mL (1000 mL/hr), then none - (NOW). Given 01:56 06/17/2016 Collette Pagan, Medication Administered: HEPARIN [IVP], Dose: 8700 unit IVP over 1 minute(s), Site: #3 right wrist. Medication Ordered: Heparin IV : initial bolus 80 units/kg, then 18 units/kg/hr for 4h (HIGH ALERT MEDICATION, NOW); Urgent. Given 01:59 06/17/2016 Collette Pagan, Medication Administered: HEPARIN [IVP], Dose: 1950 unit IVP over 1 hour(s), Site: #3 right wrist. Medication Ordered: Heparin IV : initial bolus 80 units/kg, then 18 units/kg/hr for 4h (HIGH ALERT MEDICATION, NOW); Urgent.
--- NOTE | 2016-06-20 12:48 | ED DISCHARGE INSTRUCTIONS ---
Patient: DESHAUN QUEEN General Instructions Merged [facility] VisitID: [id number] [address] [place] [address] 56y, M Registration Date/Time: 06/16/2016 Deep venous thrombosis of the right lower extremity. Alcohol intoxication. medication noncompliance. (Electronically signed by Jose Fonseca MD 06/20/2016 12:48)
--- NOTE | 2016-06-20 12:48 | ED MAR SUMMARY ---
..... Medication Administration Record [facility] [address] [place] [address] Patient: DESHAUN QUEEN Visit ID: [id number] 56y, M Weight: 108.8 kg Height/Length: 75 in BMI: 30 ALLERGIES: Gabapentin, Iodine Start 01:32 06/17/2016 Ragini Juarez RJobNJob, Stop 01:37 06/17/2016 Ragini Juarez R.N. Medication Administered: IV NS (SALINE), Dose: IV Fluids, Rate: 999 mL/hr, Dispensed: 250 mL bag, Site: #2 right AC. Medication Ordered: IV NS : initial bolus 250 mL (1000 mL/hr), then none - (NOW). Given 01:56 06/17/2016 Collette Pagan, Medication Administered: HEPARIN [IVP], Dose: 8700 unit IVP over 1 minute(s), Site: #3 right wrist. Medication Ordered: Heparin IV : initial bolus 80 units/kg, then 18 units/kg/hr for 4h (HIGH ALERT MEDICATION, NOW); Urgent. Given 01:59 06/17/2016 Collette Pagan, Medication Administered: HEPARIN [IVP], Dose: 1950 unit IVP over 1 hour(s), Site: #3 right wrist. Medication Ordered: Heparin IV : initial bolus 80 units/kg, then 18 units/kg/hr for 4h (HIGH ALERT MEDICATION, NOW); Urgent.
--- NOTE | 2016-06-20 12:48 | ED DISCHARGE INSTRUCTIONS ---
Patient: DESHAUN QUEEN General Instructions [facility] VisitID: [id number] [address] [place] [address] 56y, M Registration Date/Time: 06/16/2016 Deep venous thrombosis of the right lower extremity. Alcohol intoxication. medication noncompliance. (Electronically signed by Jose Fonseca MD 06/20/2016 12:48)
--- NOTE | 2016-06-20 12:48 | ED MED RECONCILIATION SUMMARY ---
Patient: DESHAUN QUEEN Medication Reconciliation Report [facility] VisitID: [id number] [address] [place] [address] 56y, M Registration Date/Time: 06/16/2016 Weight: 108.8 kg Height/Length: 75 in. BMI: 30.0 ALLERGIES: Gabapentin, Iodine The patient's Home Medications are listed below: THE FOLLOWING MEDICATIONS NEED TO BE RECONCILED: Coumadin Oral Lisinopril Oral Lovenox Subcutaneous Nortriptyline HCl Oral The source(s) of the original Home Medication information: patient The following Medications were given to the patient in the Emergency Department: IV NS IV Fluids bolus 0, then 999 mL/hr, administered: 06/17/2016 1:32:00 AM Heparin [IVP] IVP 8700 unit, administered: 06/17/2016 1:56:00 AM Heparin [IVP] IVP 1950 unit, administered: 06/17/2016 1:59:00 AM The following Medications were prescribed to the patient: None.
--- NOTE | 2016-06-20 12:48 | ED MED RECONCILIATION SUMMARY ---
Patient: DESHAUN QUEEN Medication Reconciliation Report [facility] VisitID: [id number] [address] [place] [address] 56y, M Registration Date/Time: 06/16/2016 Weight: 108.8 kg Height/Length: 75 in. BMI: 30.0 ALLERGIES: Gabapentin, Iodine The patient's Home Medications are listed below: THE FOLLOWING MEDICATIONS NEED TO BE RECONCILED: Coumadin Oral Lisinopril Oral Lovenox Subcutaneous Nortriptyline HCl Oral The source(s) of the original Home Medication information: patient The following Medications were given to the patient in the Emergency Department: IV NS IV Fluids bolus 0, then 999 mL/hr, administered: 06/17/2016 1:32:00 AM Heparin [IVP] IVP 8700 unit, administered: 06/17/2016 1:56:00 AM Heparin [IVP] IVP 1950 unit, administered: 06/17/2016 1:59:00 AM The following Medications were prescribed to the patient: None.
--- NOTE | 2016-06-21 12:42 | DIAGNOSTIC IMAGING REPORT ---
PROCEDURE: CTA THORAX WITH CONTRAST; FAILED EXAM INDICATION: LEFT SIDED CHEST PAIN FINDINGS: The patient was placed in the scanner and a insurance claims supervisor view was performed. However, the patient was unable to undergo the study due to claustrophobia. IMPRESSION: 1. Failed examination (CTA thorax).
--- NOTE | 2016-06-21 12:42 | DIAGNOSTIC IMAGING REPORT ---
PROCEDURE: CTA THORAX WITH CONTRAST; FAILED EXAM INDICATION: LEFT SIDED CHEST PAIN FINDINGS: The patient was placed in the scanner and a terra cotta roofer helper view was performed. However, the patient was unable to undergo the study due to claustrophobia. IMPRESSION: 1. Failed examination (CTA thorax).
== END 2016-06-18 11:00 | disposition home or self-care (01) ==
LOC: ED SRH 23:00 → ACUTE2 SRH 06-17 01:29 → TRANS SRH 06-17 01:29 → ACUTE2 SRH 06-17 03:04
PROVIDERS: Surgery; ADMIT Family Medicine
PROC: 06H03DZ Insertion of Intraluminal Device into Inferior Vena Cava, Percutaneous Approach (ICD-10-PCS; principal; 2016-06-17 15:45)
DX: I26.99 Other pulmonary embolism without acute cor pulmonale (principal); I82.401 Acute embolism and thrombosis of unspecified deep veins of right lower extremity; T45.516A Underdosing of anticoagulants, initial encounter; Z91.128 Patient's intentional underdosing of medication regimen for other reason; Z91.14 Patient's other noncompliance with medication regimen; F10.220 Alcohol dependence with intoxication, uncomplicated; F17.210 Nicotine dependence, cigarettes, uncomplicated
CPT/HCPCS: 29229; 29230; 29244; 29251; 29253; 29259; 29264; 50002; 60001; 70002; 80102; 80124; 80403; 81716; 81731; 82948; 83348; 84038; 90074; 90100; 91672; 92132; 92235; 92530; 94001; 94060; 95059

== ENCOUNTER 2016-07-19 18:01 | Emergency (ER) | payer OTHER ==
[~2016-07-19 18:01] MED LIST changes: +SUMATRIPTAN SUC50 MG PO
--- NOTE | 2016-07-19 21:53 | ED CLINICAL REPORT ---
Clinical Report - Physicians/Mid Levels [facility] [address] [place] [address] 07/19/2016 18:02 Patient: DESHAUN QUEEN Time Seen: 18:11; initial patient contact, initial documentation, patient care assumed. Arrived- By private vehicle. Historian- patient. HISTORY OF PRESENT ILLNESS Chief Complaint: ABDOMINAL PAIN. At its maximum, severity described as severe. When seen in the E.D., severity described as severe. Modifying factors. Not worsened by anything. Not relieved by anything. This started about 1 months ago and is still present. It is described as "pain", sharp and stabbing. No radiation. It is described as located in the left lower quadrant. No nausea, loss of appetite or vomiting. He has had diarrhea. This has occurred numerous times. It has been watery. No bloody, mucous containing or blood-tinged diarrhea. No additional abdominal pain. (says that ever since we put the filter in in June he has had belly pain). Similar symptoms previously: None. Recent medical care: Not recently seen/assessed. REVIEW OF SYSTEMS No constipation, black stools, hematemesis, difficulty with urination or pain with urination. No urinary frequency, bloody stools, fever, chest pain or difficulty breathing. All systems otherwise negative, except as recorded above. PAST HISTORY See nurses notes. PAST HISTORY Problems: Gastroenteritis. Cholelithiasis. Neuropathy. Gastroesophageal Reflux Disease. C. Difficile Colitis. GI Bleeding. Dehydration. Abdominal Pain. Hematuria. DVT - Deep Venous Thrombosis. Ruptured Achilles. Seizure. Hypomagnesemia. Gastritis. Hypokalemia. Diarrhea. Vomiting. Hypertension. Hypercholesterolemia. Diabetes Mellitus. Additional Surgeries: Back Surgery. SOCIAL HISTORY Heavy tobacco smoker. Alcohol use. Patient is a longstanding alcoholic. No drug use. No recent travel. Is a local resident. FAMILY HISTORY Negative. ADDITIONAL NOTES The nursing notes have been reviewed with agreement regarding the chief complaint, HPI, ROS, PMH and patient medications and allergies. PHYSICAL EXAM Vital Signs: 07/19/2016 18:12 BP: 151/88. HR: 106. RR: 18. O2 saturation: 98%. Temp: 97.9 F. Pain level now: 10/14. Have been reviewed as abnormal and appear to be correct. Blood pressure normal. Tachycardic. Respiratory rate normal. Temperature normal. Oxygen saturation normal. Appearance: Alert. Oriented X3. No acute distress. Eyes: Pupils equal, round and reactive to light. Eyes normal inspection. Neck: Normal inspection. Neck supple. CVS: Heart rate / rhythm abnormal. Tachycardia (104 ventricular rate =). Heart sounds normal. Pulses normal. Respiratory: No respiratory distress. Breath sounds normal. Chest nontender. Abdomen: Soft. Mild tenderness in the left lower quadrant. No guarding, rebound tenderness or Hernandez's, obturator or psoas sign present. Bowel sounds normal. No organomegaly. No mass. Mildly obese. Tenderness present. Back: Normal inspection. Skin: Skin warm and dry. Normal skin color. No rash. Normal skin turgor. Extremities: Extremities exhibit normal ROM. No lower extremity edema. Neuro: Oriented X 3. No motor deficit. No sensory deficit. LABS, X-RAYS, AND EKG Abdominal CT: No acute disease. The study was interpreted by the radiologist and discussed with the radiologist. Interpretation time: 21:42. Laboratory Tests: UA-Culture if indicated: (DEX: 07/19/2016 18:40) ( MsgRcvd 07/19/2016 19:20) Final results Test Result Flag Units (Reference) URINE COLOR YELLOW URINE APPEARANCE CLEAR URINE GLUCOSE NEGATIVE (NEGATIVE) URINE BILIRUBIN ICTOTEST NEGATIVE (NEGATIVE) URINE KETONE NEGATIVE (NEGATIVE) URINE SPECIFIC GRAVITY >= 1.030 (1.010-1.030) URINE PH 5.5 (5.0-8.0) URINE PROTEIN 3+ (NEGATIVE) URINE UROBILINOGEN 0.2 EU/dL (0.2-1.0) URINE NITRITE NEGATIVE (NEGATIVE) URINE BLOOD 2+ (NEGATIVE) URINE LEUK ESTERASE NEGATIVE (NEGATIVE) URINE RBC 0-1 rbc/hpf (0-1) URINE WBC RARE wbc/hpf (0-1) URINE EPITHELIAL CELLS RARE EPI/hpf (0-5) URINE BACTERIA NONE SEEN (NONE SEEN) URINE COMMENT CULT NOT INDICATED 1+ [id number] Hyaline Casts/l.p.f.URINE CULTURES ARE SET-UP BASED ON THE FOLLOWING CRITERIA:POSITIVE NITRITEPOSITIVE LEUKOCYTE ESTERASEGREATER THAN 10 WHITE BLOOD CELLSMODERATE (2+) OR GREATER BACTERIA CBC w Diff: (DEX: 07/19/2016 19:00) ( MsgRcvd 07/19/2016 19:08) Final results Test Result Flag Units (Reference) WHITE BLOOD COUNT 10.8 K/uL (4.5-11.5) RED BLOOD COUNT 3.73 L M/uL (4.50-5.90) HEMOGLOBIN 12.5 L gm/dL (13.5-17.5) HEMATOCRIT 36.8 L % (41.0-53.0) MEAN CELL VOLUME 99 fL (80-100) MEAN CORPUSCULAR HGB 33 pg (26-34) MEAN CORPUSCULAR HGB CONC 34 g/dL (31-37) RED CELL DISTRIBUTION WIDTH 18.6 H % (11.6-14.8) PLATELET COUNT 183 K/uL (150-400) NEUTROPHIL % 56.9 % (50-75) LYMPH % 30.6 % (25-40) MONO % 7.5 % (3-14) EOSINOPHIL % 4.6 H % (0-4) BASOPHIL % 0.4 % (0-2) CMP: (DEX: 07/19/2016 19:00) ( MsgRcvd 07/19/2016 19:31) Final results Test Result Flag Units (Reference) GLUCOSE 149 H mg/dL (70-110) BUN 18 mg/dL (7-18) CREATININE 1.2 mg/dL (0.6-1.3) Estimated GFR >60 mL/min Estimated GFR- >60 mL/min Note: Persistent reduction over 3 months in eGFR<60 mL/min/1.73 m2 defines CKD. Patients with eGFR values>=60 mL/min/1.73 m2 may also have CKD if evidence ofpersistent proteinuria. Additional information may be foundat [email or web address].org. SODIUM 146 H mmol/L (136-145) POTASSIUM 3.4 L mmol/L (3.5-5.1) CHLORIDE 107 mmol/L (98-107) CARBON DIOXIDE 29 mmol/L (21-32) CALCIUM 8.0 L mg/dL (8.5-10.1) TOTAL PROTEIN 7.2 g/dL (6.4-8.2) ALBUMIN 3.6 g/dL (3.3-5.0) BILIRUBIN, TOTAL 0.4 mg/dL (0.0-1.0) ALKALINE PHOSPHATASE 149 H U/L (46-116) AST (SGOT) 26 U/L (15-37) ALT (SGPT) 22 U/L (12-78) LIPASE 374 U/L (73-393) AMYLASE 59 U/L (25-115) ETHYL ALCOHOL <3 L mg/dL (3-10) . PROGRESS AND PROCEDURES Peripheral IV Placement: Time: 1849. Performed by me. IV placed in the left antecubital space with an 18g angiocath with aseptic technique and good blood return; one attempt. Saline lock flushed with 5 mL saline. Course of Care: 1847. nurse informing me that they tried x4 to get iv access, only got 24 in R hand and ct could not be done with this 2144. pt now telling me he never followed up with dr who put filter in or txed him for his clot, doesn't know dr's name, and he wants filter out, encouraged to f/u with possible gi dr rodriguez bowel issues and concerned about ibs or other gut issue, and f/u with dr rodriguez dvt and clot to see about getting filter out, if it can be removed 21:52 07/19/16. old er records reviewed, Dr Sharma consulted on ivc filter 22:00 07/19/16. pt has kushal aquino recommendations to limit ionizing imaging and #21 er visits, including issues with si and alcohol. Patient counseled in person regarding the patient's stable condition, test results and diagnosis. 21:45. Differential Diagnosis: I considered gastritis, gastroenteritis, peptic ulcer disease, gastroesophageal reflux disease, mesenteric lymphadenitis, diverticulitis, colon cancer, Crohn's disease, small bowel obstruction, adhesions, obstipation, hernia, urinary tract infection, ureterolithiasis and viral syndrome as a possible cause of abdominal pain in this patient. This is a partial list of diagnoses considered. Above considerations are based on history, physical exam, reassessment, laboratory data and other information. Differential diagnosis was discussed with patient. Disposition: Discharged home in good and improved condition (21:52). Condition: good and stable. CLINICAL IMPRESSION Acute left lower quadrant abdominal pain of undetermined cause. Diarrhea INSTRUCTIONS (over the counter diarrhea medicine). Warnings: GENERAL WARNINGS: Return or contact your physician immediately if your condition worsens or changes unexpectedly, if not improving as expected, or if other problems arise. SPECIFICALLY, return if you develop pain in the abdomen, fever, the inability to keep fluids down, blood in vomitus, blood in diarrhea, fainting or lightheadedness. Prescription Medications: Bentyl 20 mg tablets: take 1 orally every 6 hours as needed. Dispense thirty (30). No refills. Substitution is permissible. Follow-up: Follow up with your doctor in about two days even if well. Call for an appointment. Summary of care provided to patient. Understanding of the discharge instructions verbalized by patient. Follow-up with: Benedicto Torres MD, Gastroenterology, [address] [place] [address], [address] , [place], [address]; Mukesh Avina MD, Gastroenterology, [address] [place] [address], [address] [place] [address], [address], [place], [address]; Megan Barker MD, Gastroenteroloy, [address] [place] [address], [address] [place] [address] [address], [place], [address]; Jamar Felix MD, Gastroenteroloy, [address] [place] [address], [address] [place] [address] [address], [place], [address]; Rosalia Simms MD, Gastroenteroloy, [address] [place] [address], [address] [place] [address] [address], [place], [id number]; Theo Hull MD, General Surgeon, , [facility], [address] [place] [address] Follow up in about two days even if well. Call for an appointment. Summary of care provided to patient. (Electronically signed by Diana Trujillo A.R.N.P. 07/19/2016 22:25)
--- NOTE | 2016-07-19 21:53 | ED ORDER SUMMARY ---
..... Patient: DESHAUN QUEEN OrderSheet [facility] VisitID: [id number] [address] [place] [address] 56y, M Registration Date/Time: 07/19/2016 ORDER SHEET Weight: 113.3 kg (stated) Allergies: Gabapentin GENERAL ORDERS: CT Abd/Pel w Cont (No) (penidng) Urgent (18:42 07/19/2016 HBivens A.R.N.P.) (Ack 18:43 KHoerner) (20:20 MCampbell) CBC w Diff Urgent (18:42 07/19/2016 HBivens A.R.N.P.) (Ack 18:43 KHoerner) (19:35 TBowen R.N.) CMP Urgent (18:42 07/19/2016 HBivens A.R.N.P.) (Ack 18:43 KHoerner) (19:35 TBowen R.N.) UA-Culture if indicated Urgent (18:42 07/19/2016 HBivens A.R.N.P.) (Ack 18:43 KHoerner) (19:35 TBowen R.N.) Amylase Urgent (18:42 07/19/2016 HBivens A.R.N.P.) (Ack 18:43 KHoerner) (19:35 TBowen R.N.) Lipase Urgent (18:42 07/19/2016 HBivens A.R.N.P.) (Ack 18:43 KHoerner) (19:35 TBowen R.N.) Ethyl Alcohol Urgent (18:42 07/19/2016 HBivens A.R.N.P.) (Ack 18:43 KHoerner) (19:35 TBowen R.N.) MEDICATION ORDERS: IV FLUIDS: IV NS : initial bolus 1000 mL (1000 mL/hr), then none - (NOW) (18:42 07/19/2016 HBivens A.R.N.P.) (19:02 SStone R.N.) Toradol IV 30 mg (NOW) (18:42 07/19/2016 HBivens A.R.N.P.) (19:02 Estelle R.N.) IV Saline Lock (18:42 07/19/2016 HBivenhelen A.R.N.P.) (18:48 Lucia R.N.) ORDER SHEET NOTES: [Electronically signed by Diana TrujilloNJobPJob (22:25 07/19/2016)] [Electronically signed by Bernabe Cole R.N. (23:24 07/19/2016)] [Electronically locked/signed by Bernabe Cole R.N. (23:24 07/19/2016)]
--- NOTE | 2016-07-19 21:53 | ED ORDER SUMMARY ---
..... Patient: DESHAUN QUEEN OrderSheet [facility] VisitID: [id number] [address] [place] [address] 56y, M Registration Date/Time: 07/19/2016 ORDER SHEET Weight: 113.3 kg (stated) Allergies: Gabapentin GENERAL ORDERS: CT Abd/Pel w Cont (No) (penidng) Urgent (18:42 07/19/2016 HBivens A.R.N.P.) (Ack 18:43 KHoerner) (20:20 MCampbell) CBC w Diff Urgent (18:42 07/19/2016 HBivens A.R.N.P.) (Ack 18:43 KHoerner) (19:35 TBowen R.N.) CMP Urgent (18:42 07/19/2016 HBivens A.R.N.P.) (Ack 18:43 KHoerner) (19:35 TBowen R.N.) UA-Culture if indicated Urgent (18:42 07/19/2016 HBivens A.R.N.P.) (Ack 18:43 KHoerner) (19:35 TBowen R.N.) Amylase Urgent (18:42 07/19/2016 HBivens A.R.N.P.) (Ack 18:43 KHoerner) (19:35 TBowen R.N.) Lipase Urgent (18:42 07/19/2016 HBivens A.R.N.P.) (Ack 18:43 KHoerner) (19:35 TBowen R.N.) Ethyl Alcohol Urgent (18:42 07/19/2016 HBivens A.R.N.P.) (Ack 18:43 KHoerner) (19:35 TBowen R.N.) MEDICATION ORDERS: IV FLUIDS: IV NS : initial bolus 1000 mL (1000 mL/hr), then none - (NOW) (18:42 07/19/2016 HBivens A.R.N.P.) (19:02 SStone R.N.) Toradol IV 30 mg (NOW) (18:42 07/19/2016 HBivens A.R.N.P.) (19:02 Estelle R.N.) IV Saline Lock (18:42 07/19/2016 HBivenhelen A.R.N.P.) (18:48 Lucia R.N.) ORDER SHEET NOTES: [Electronically signed by Diana TrujilloNJobPJob (22:25 07/19/2016)] [Electronically signed by Bernabe Cole R.N. (23:24 07/19/2016)] [Electronically locked/signed by Bernabe Cole R.N. (23:24 07/19/2016)]
--- NOTE | 2016-07-19 21:53 | ED NURSING NOTES ---
Clinical Report - Nurses [facility] [address] [place] [address] 07/19/2016 18:02 Patient: DESHAUN QUEEN TRIAGE Triage time 18:12. Acuity: LEVEL 3. Chief Complaint: ABDOMINAL PAIN. --18:16 Shayla Kraft R.N. 18:12 07/19/16. BP: 151/88. HR: 106. RR: 18. O2 saturation: 98%. Temp: 97.9 F. Pain level now: 10/14. --18:16 Shayla Kraft R.N. Weight: 113.3 kg stated. Height/Length: 75 inches Per Patient. BMI: 31.2. --18:11 Shayla Kraft R.N. Medications Lisinopril Oral. --18:21 Shayla Kraft R.N. Ambien 5 mg qhs. --18:21 Shayla Kraft R.N. Mirtazapine Oral. --18:21 Shayla Kraft R.N. Allergies Gabapentin. --18:14 Shayla Kraft R.N. History Arrived by private vehicle. Historian: patient. Onset. (2 days ago). ( Pt. had a filter placed in a vessel in his RUQ (pt. unsure which vessel) for DVT in RLE one month ago. States he has had pain at the site of the filter since then, but has been worsening x 2 days.). He has had diarrhea and abdominal pain. Last oral intake by patient was (6 hours ago). Treatment MANAGER TECHNOLOGY: Took ibuprofen. SOCIAL HX: Heavy tobacco smoker (cigarette)- 1 pack per day. No alcohol use or drug use. The patient was exposed to MRSA. (Bilaterel LEs). --18:16 Shayla Kraft R.N. PROBLEMS: Alcohol Intoxication. Gastroenteritis. Cholelithiasis. Gastroesophageal Reflux Disease. C. Difficile Colitis. GI Bleeding. DVT - Deep Venous Thrombosis. Hypomagnesemia. Hypertension. Hypercholesterolemia. --18:49 Shayla Kraft R.N. ADDITIONAL SURGERIES: Cholecystectomy. Vessel filter . --18:15 Shayla Kraft R.N. Interventions ID band on patient. To treatment room. --18:16 Shayla Kraft R.N. PHYSICAL ASSESSMENT Ambulatory to room. GENERAL / NEURO / PSYCH: Alert. Oriented X 4. Appears in no acute distress. RESPIRATORY: Respirations not labored. CVS: Normal sinus rhythm noted. GI / : Abdominal distention. Abdominal tenderness in the right upper quadrant. Bowel sounds within normal limits. SKIN: Skin is warm and dry. --18:18 Shayla Kraft R.N. NURSING PROGRESS NOTES Pulse oximeter and NIBP monitor placed on patient. Patient gowned. Call light placed in reach. Side rails up x 1. Bed placed in lowest position. Brakes of bed on. --18:19 Shayla Kraft R.N. 18:48 07/19/2016 Site #1 started via IV in the right hand with an 24g angiocath, with aseptic technique and good blood return; two attempts. Saline lock flushed with 10 mL saline. --18:48 Amisha Kerns R.N. 19:02 07/19/2016 Site #2 started via IV in the left antecubital space with an 18g angiocath; one attempt. Blood drawn: rainbow set. Saline lock flushed with 10 mL saline (line initiated by SUAD). --19:02 Shayla Kraft R.N. 19:02 07/19/2016 Started bag #1 1000 mL IV Fluids IV NS (Saline); at 1000 mL/hr over 1 hour(s) via site #2. IV patency established. IV site checked: no pain, redness, or swelling. IV flushed thoroughly pre- and post-medication administration. --19:02 Shayla Kraft R.N. 19:02 07/19/2016 Toradol IVP 30 mg given over 2 minute(s) via site #2. IV patency established. IV site checked: no pain, redness, or swelling. IV flushed thoroughly pre- and post-medication administration. --19:02 Shayla Kraft R.N. ( Report to RN. Cathi for end of shift coverage.). --19:03 Shayla Kraft R.N. Reassessment after medication administered. Overall patient status is the same. ( LEADITE HEATER aware that pt is still in pain.). --19:39 Fernando Newman 21:16 07/19/2016 IV Fluids IV NS Discontinued: bag #1 completed. Total amount infused: 1000 mL. IV patency established. IV site checked: no pain, redness, or swelling. IV flushed thoroughly. --21:16 Fernando Newman ( pt requesting pain medication at this time, LEADITE HEATER aware). --21:24 Fernando Newman 22:06. The patient is calm and resting quietly. SKIN: Skin is warm and dry. Skin color within normal limits. --23:24 Bernabe Cole R.N. DISPOSITION / DISCHARGE 22:02 07/19/2016 Site #1 removed upon discharge. Catheter intact. Bandage applied. --23:20 Bernabe Cole R.N. 22:04 07/19/2016 Site #2 removed upon discharge. Catheter intact. Bandage applied. --23:21 Bernabe Cole R.N. Departure time: 2207. Condition at departure: stable. No learning barriers present. Discharge instructions provided and reviewed with the patient. Reviewed medication(s) side effects, precautions, dosing and course information. Prescription(s) given to the patient. Patient verbalized understanding. Written instructions provided in Nepali. The patient was discharged home and unaccompanied at time of discharge. He left the Emergency Department ambulatory and via private vehicle. Patient driving. FALL RISK ASSESSMENT: Fall risk assessment completed. No fall risk identified. --23:23 Bernabe Cole R.N. 22:01 07/19/16. BP: 146/89. HR: 52. RR: 15. O2 saturation: 98% on room air. Pain level now: 09/13. --23:23 Bernabe Cole R.N. Locked/Released at 07/19/2016 23:24 by Bernabe Cole R.N.
--- NOTE | 2016-07-19 21:53 | ED NURSING NOTES ---
Clinical Report - Nurses [facility] [address] [place] [address] 07/19/2016 18:02 Patient: DESHAUN QUEEN TRIAGE Triage time 18:12. Acuity: LEVEL 3. Chief Complaint: ABDOMINAL PAIN. --18:16 Shayla Kraft R.N. 18:12 07/19/16. BP: 151/88. HR: 106. RR: 18. O2 saturation: 98%. Temp: 97.9 F. Pain level now: 10/14. --18:16 Shayla Kraft R.N. Weight: 113.3 kg stated. Height/Length: 75 inches Per Patient. BMI: 31.2. --18:11 Shayla Kraft R.N. Medications Lisinopril Oral. --18:21 Shayla Kraft R.N. Ambien 5 mg qhs. --18:21 Shayla Kraft R.N. Mirtazapine Oral. --18:21 Shayla Kraft R.N. Allergies Gabapentin. --18:14 Shayla Kraft R.N. History Arrived by private vehicle. Historian: patient. Onset. (2 days ago). ( Pt. had a filter placed in a vessel in his RUQ (pt. unsure which vessel) for DVT in RLE one month ago. States he has had pain at the site of the filter since then, but has been worsening x 2 days.). He has had diarrhea and abdominal pain. Last oral intake by patient was (6 hours ago). Treatment QUARTER TRIMMER: Took ibuprofen. SOCIAL HX: Heavy tobacco smoker (cigarette)- 1 pack per day. No alcohol use or drug use. The patient was exposed to MRSA. (Bilaterel LEs). --18:16 Shayla Kraft R.N. PROBLEMS: Alcohol Intoxication. Gastroenteritis. Cholelithiasis. Gastroesophageal Reflux Disease. C. Difficile Colitis. GI Bleeding. DVT - Deep Venous Thrombosis. Hypomagnesemia. Hypertension. Hypercholesterolemia. --18:49 Shayla Kraft R.N. ADDITIONAL SURGERIES: Cholecystectomy. Vessel filter . --18:15 Shayla Kraft R.N. Interventions ID band on patient. To treatment room. --18:16 Shayla Kraft R.N. PHYSICAL ASSESSMENT Ambulatory to room. GENERAL / NEURO / PSYCH: Alert. Oriented X 4. Appears in no acute distress. RESPIRATORY: Respirations not labored. CVS: Normal sinus rhythm noted. GI / : Abdominal distention. Abdominal tenderness in the right upper quadrant. Bowel sounds within normal limits. SKIN: Skin is warm and dry. --18:18 Shayla Kraft R.N. NURSING PROGRESS NOTES Pulse oximeter and NIBP monitor placed on patient. Patient gowned. Call light placed in reach. Side rails up x 1. Bed placed in lowest position. Brakes of bed on. --18:19 Shayla Kraft R.N. 18:48 07/19/2016 Site #1 started via IV in the right hand with an 24g angiocath, with aseptic technique and good blood return; two attempts. Saline lock flushed with 10 mL saline. --18:48 Amisha Kerns R.N. 19:02 07/19/2016 Site #2 started via IV in the left antecubital space with an 18g angiocath; one attempt. Blood drawn: rainbow set. Saline lock flushed with 10 mL saline (line initiated by SUAD). --19:02 Shayla Kraft R.N. 19:02 07/19/2016 Started bag #1 1000 mL IV Fluids IV NS (Saline); at 1000 mL/hr over 1 hour(s) via site #2. IV patency established. IV site checked: no pain, redness, or swelling. IV flushed thoroughly pre- and post-medication administration. --19:02 Shayla Kraft R.N. 19:02 07/19/2016 Toradol IVP 30 mg given over 2 minute(s) via site #2. IV patency established. IV site checked: no pain, redness, or swelling. IV flushed thoroughly pre- and post-medication administration. --19:02 Shayla Kraft R.N. ( Report to RN. Cathi for end of shift coverage.). --19:03 Shayla Kraft R.N. Reassessment after medication administered. Overall patient status is the same. ( BOWLING BALL MOLD ASSEMBLER aware that pt is still in pain.). --19:39 Fernando Newman 21:16 07/19/2016 IV Fluids IV NS Discontinued: bag #1 completed. Total amount infused: 1000 mL. IV patency established. IV site checked: no pain, redness, or swelling. IV flushed thoroughly. --21:16 Fernando Newman ( pt requesting pain medication at this time, BOWLING BALL MOLD ASSEMBLER aware). --21:24 Fernando Newman 22:06. The patient is calm and resting quietly. SKIN: Skin is warm and dry. Skin color within normal limits. --23:24 Bernabe Cole R.N. DISPOSITION / DISCHARGE 22:02 07/19/2016 Site #1 removed upon discharge. Catheter intact. Bandage applied. --23:20 Bernabe Cole R.N. 22:04 07/19/2016 Site #2 removed upon discharge. Catheter intact. Bandage applied. --23:21 Bernabe Cole R.N. Departure time: 2207. Condition at departure: stable. No learning barriers present. Discharge instructions provided and reviewed with the patient. Reviewed medication(s) side effects, precautions, dosing and course information. Prescription(s) given to the patient. Patient verbalized understanding. Written instructions provided in Turkish. The patient was discharged home and unaccompanied at time of discharge. He left the Emergency Department ambulatory and via private vehicle. Patient driving. FALL RISK ASSESSMENT: Fall risk assessment completed. No fall risk identified. --23:23 Bernabe Cole R.N. 22:01 07/19/16. BP: 146/89. HR: 52. RR: 15. O2 saturation: 98% on room air. Pain level now: 09/13. --23:23 Bernabe Cole R.N. Locked/Released at 07/19/2016 23:24 by Bernabe Cole R.N.
--- NOTE | 2016-07-19 21:53 | ED CLINICAL REPORT ---
Clinical Report - Physicians/Mid Levels [facility] [address] [place] [address] 07/19/2016 18:02 Patient: DESHAUN QUEEN Time Seen: 18:11; initial patient contact, initial documentation, patient care assumed. Arrived- By private vehicle. Historian- patient. HISTORY OF PRESENT ILLNESS Chief Complaint: ABDOMINAL PAIN. At its maximum, severity described as severe. When seen in the E.D., severity described as severe. Modifying factors. Not worsened by anything. Not relieved by anything. This started about 1 months ago and is still present. It is described as "pain", sharp and stabbing. No radiation. It is described as located in the left lower quadrant. No nausea, loss of appetite or vomiting. He has had diarrhea. This has occurred numerous times. It has been watery. No bloody, mucous containing or blood-tinged diarrhea. No additional abdominal pain. (says that ever since we put the filter in in June he has had belly pain). Similar symptoms previously: None. Recent medical care: Not recently seen/assessed. REVIEW OF SYSTEMS No constipation, black stools, hematemesis, difficulty with urination or pain with urination. No urinary frequency, bloody stools, fever, chest pain or difficulty breathing. All systems otherwise negative, except as recorded above. PAST HISTORY See nurses notes. PAST HISTORY Problems: Gastroenteritis. Cholelithiasis. Neuropathy. Gastroesophageal Reflux Disease. C. Difficile Colitis. GI Bleeding. Dehydration. Abdominal Pain. Hematuria. DVT - Deep Venous Thrombosis. Ruptured Achilles. Seizure. Hypomagnesemia. Gastritis. Hypokalemia. Diarrhea. Vomiting. Hypertension. Hypercholesterolemia. Diabetes Mellitus. Additional Surgeries: Back Surgery. SOCIAL HISTORY Heavy tobacco smoker. Alcohol use. Patient is a longstanding alcoholic. No drug use. No recent travel. Is a local resident. FAMILY HISTORY Negative. ADDITIONAL NOTES The nursing notes have been reviewed with agreement regarding the chief complaint, HPI, ROS, PMH and patient medications and allergies. PHYSICAL EXAM Vital Signs: 07/19/2016 18:12 BP: 151/88. HR: 106. RR: 18. O2 saturation: 98%. Temp: 97.9 F. Pain level now: 10/14. Have been reviewed as abnormal and appear to be correct. Blood pressure normal. Tachycardic. Respiratory rate normal. Temperature normal. Oxygen saturation normal. Appearance: Alert. Oriented X3. No acute distress. Eyes: Pupils equal, round and reactive to light. Eyes normal inspection. Neck: Normal inspection. Neck supple. CVS: Heart rate / rhythm abnormal. Tachycardia (104 ventricular rate =). Heart sounds normal. Pulses normal. Respiratory: No respiratory distress. Breath sounds normal. Chest nontender. Abdomen: Soft. Mild tenderness in the left lower quadrant. No guarding, rebound tenderness or Hernandez's, obturator or psoas sign present. Bowel sounds normal. No organomegaly. No mass. Mildly obese. Tenderness present. Back: Normal inspection. Skin: Skin warm and dry. Normal skin color. No rash. Normal skin turgor. Extremities: Extremities exhibit normal ROM. No lower extremity edema. Neuro: Oriented X 3. No motor deficit. No sensory deficit. LABS, X-RAYS, AND EKG Abdominal CT: No acute disease. The study was interpreted by the radiologist and discussed with the radiologist. Interpretation time: 21:42. Laboratory Tests: UA-Culture if indicated: (DEX: 07/19/2016 18:40) ( MsgRcvd 07/19/2016 19:20) Final results Test Result Flag Units (Reference) URINE COLOR YELLOW URINE APPEARANCE CLEAR URINE GLUCOSE NEGATIVE (NEGATIVE) URINE BILIRUBIN ICTOTEST NEGATIVE (NEGATIVE) URINE KETONE NEGATIVE (NEGATIVE) URINE SPECIFIC GRAVITY >= 1.030 (1.010-1.030) URINE PH 5.5 (5.0-8.0) URINE PROTEIN 3+ (NEGATIVE) URINE UROBILINOGEN 0.2 EU/dL (0.2-1.0) URINE NITRITE NEGATIVE (NEGATIVE) URINE BLOOD 2+ (NEGATIVE) URINE LEUK ESTERASE NEGATIVE (NEGATIVE) URINE RBC 0-1 rbc/hpf (0-1) URINE WBC RARE wbc/hpf (0-1) URINE EPITHELIAL CELLS RARE EPI/hpf (0-5) URINE BACTERIA NONE SEEN (NONE SEEN) URINE COMMENT CULT NOT INDICATED 1+ [id number] Hyaline Casts/l.p.f.URINE CULTURES ARE SET-UP BASED ON THE FOLLOWING CRITERIA:POSITIVE NITRITEPOSITIVE LEUKOCYTE ESTERASEGREATER THAN 10 WHITE BLOOD CELLSMODERATE (2+) OR GREATER BACTERIA CBC w Diff: (DEX: 07/19/2016 19:00) ( MsgRcvd 07/19/2016 19:08) Final results Test Result Flag Units (Reference) WHITE BLOOD COUNT 10.8 K/uL (4.5-11.5) RED BLOOD COUNT 3.73 L M/uL (4.50-5.90) HEMOGLOBIN 12.5 L gm/dL (13.5-17.5) HEMATOCRIT 36.8 L % (41.0-53.0) MEAN CELL VOLUME 99 fL (80-100) MEAN CORPUSCULAR HGB 33 pg (26-34) MEAN CORPUSCULAR HGB CONC 34 g/dL (31-37) RED CELL DISTRIBUTION WIDTH 18.6 H % (11.6-14.8) PLATELET COUNT 183 K/uL (150-400) NEUTROPHIL % 56.9 % (50-75) LYMPH % 30.6 % (25-40) MONO % 7.5 % (3-14) EOSINOPHIL % 4.6 H % (0-4) BASOPHIL % 0.4 % (0-2) CMP: (DEX: 07/19/2016 19:00) ( MsgRcvd 07/19/2016 19:31) Final results Test Result Flag Units (Reference) GLUCOSE 149 H mg/dL (70-110) BUN 18 mg/dL (7-18) CREATININE 1.2 mg/dL (0.6-1.3) Estimated GFR >60 mL/min Estimated GFR- >60 mL/min Note: Persistent reduction over 3 months in eGFR<60 mL/min/1.73 m2 defines CKD. Patients with eGFR values>=60 mL/min/1.73 m2 may also have CKD if evidence ofpersistent proteinuria. Additional information may be foundat [email or web address]. SODIUM 146 H mmol/L (136-145) POTASSIUM 3.4 L mmol/L (3.5-5.1) CHLORIDE 107 mmol/L (98-107) CARBON DIOXIDE 29 mmol/L (21-32) CALCIUM 8.0 L mg/dL (8.5-10.1) TOTAL PROTEIN 7.2 g/dL (6.4-8.2) ALBUMIN 3.6 g/dL (3.3-5.0) BILIRUBIN, TOTAL 0.4 mg/dL (0.0-1.0) ALKALINE PHOSPHATASE 149 H U/L (46-116) AST (SGOT) 26 U/L (15-37) ALT (SGPT) 22 U/L (12-78) LIPASE 374 U/L (73-393) AMYLASE 59 U/L (25-115) ETHYL ALCOHOL <3 L mg/dL (3-10) . PROGRESS AND PROCEDURES Peripheral IV Placement: Time: 1849. Performed by me. IV placed in the left antecubital space with an 18g angiocath with aseptic technique and good blood return; one attempt. Saline lock flushed with 5 mL saline. Course of Care: 1847. nurse informing me that they tried x4 to get iv access, only got 24 [address] hand and [address] could not be done with this 2144. pt now telling me he never followed up with dr who put filter in or txed him for his clot, doesn't know dr's name, and he wants filter out, encouraged to f/u with possible gi dr rodriguez bowel issues and concerned about ibs or other gut issue, and f/u with dr rodriguez dvt and clot to see about getting filter out, if it can be removed 21:52 07/19/16. old er records reviewed, Dr Sharma consulted on ivc filter 22:00 07/19/16. pt has kushal aquino recommendations to limit ionizing imaging and #21 er visits, including issues with si and alcohol. Patient counseled in person regarding the patient's stable condition, test results and diagnosis. 21:45. Differential Diagnosis: I considered gastritis, gastroenteritis, peptic ulcer disease, gastroesophageal reflux disease, mesenteric lymphadenitis, diverticulitis, colon cancer, Crohn's disease, small bowel obstruction, adhesions, obstipation, hernia, urinary tract infection, ureterolithiasis and viral syndrome as a possible cause of abdominal pain in this patient. This is a partial list of diagnoses considered. Above considerations are based on history, physical exam, reassessment, laboratory data and other information. Differential diagnosis was discussed with patient. Disposition: Discharged home in good and improved condition (21:52). Condition: good and stable. CLINICAL IMPRESSION Acute left lower quadrant abdominal pain of undetermined cause. Diarrhea INSTRUCTIONS (over the counter diarrhea medicine). Warnings: GENERAL WARNINGS: Return or contact your physician immediately if your condition worsens or changes unexpectedly, if not improving as expected, or if other problems arise. SPECIFICALLY, return if you develop pain in the abdomen, fever, the inability to keep fluids down, blood in vomitus, blood in diarrhea, fainting or lightheadedness. Prescription Medications: Bentyl 20 mg tablets: take 1 orally every 6 hours as needed. Dispense thirty (30). No refills. Substitution is permissible. Follow-up: Follow up with your doctor in about two days even if well. Call for an appointment. Summary of care provided to patient. Understanding of the discharge instructions verbalized by patient. Follow-up with: Benedicto Torres MD, Gastroenterology, [address] [place] [address], [address] , [place], [id number]; Mkuesh Avina MD, Gastroenterology, [address] [place] [address], [address] [place] [address], [address], [place], [id number]; Megan Barker MD, Gastroenteroloy, [address] [place] [address], [address] [place] [address] [address], [place], [id number]; Jamar Felix MD, Gastroenteroloy, [address] [place] [address], [address] [place] [address] [address], [place], [id number]; Rosalia Simms MD, Gastroenteroloy, [address] [place] [address], [address] [place] [address] [address], [place], [id number]; Theo Hull MD, General Surgeon, , [facility], [address] [place] [address] Follow up in about two days even if well. Call for an appointment. Summary of care provided to patient. (Electronically signed by Diana Trujillo A.R.N.P. 07/19/2016 22:25)
--- NOTE | 2016-07-19 21:55 | DIAGNOSTIC IMAGING REPORT ---
PROCEDURE: ABDOMEN/PELVIS WITH CONTRAST CLINICAL INDICATION: ABDOMINAL PAIN TECHNIQUE: 135 ml of Isovue 300 were injected intravenously and axial images were obtained of the abdomen and pelvis with sagittal and coronal reformations. COMPARISON: 09/06/2015 and 08/23/2015. FINDINGS: ABDOMEN: Decreased thickening of the distal esophagus compared to prior studies. Interval cholecystectomy. Interval placement of [place] filter in the infrarenal inferior vena cava. Mild nonspecific bilateral perinephric stranding , chronic. Clear lung bases. Normal sized heart. No hiatal hernia. The liver, gallbladder, adrenal glands, kidneys, pancreas and spleen are normal. The abdominal aorta is normal in its course and caliber. Minor atherosclerosis. There are no suspicious calcifications, retroperitoneal adenopathy or masses. The stomach, upper bowel loops, and mesentery are normal. Intact anterior abdominal wall. No free fluid or inflammation. PELVIS: The appendix and pelvic small bowel loops are normal. Normal amount of stool in the colon and rectum. The prostate gland, seminal vesicles, urinary bladder, and pelvic vessels are normal. No adenopathy, free fluid, or pelvic mass. Degenerative change at L5-S1. IMPRESSION: 1. No acute process. 2. Interval cholecystectomy and placement of a [place] filter. 3. Discussed with Diana Trujillo in the emergency room. All CT scans at this facility use dose modulation, iterative reconstruction, and/or weight-based dosing when appropriate to reduce radiation dose to as low as reasonably achievable.
--- NOTE | 2016-07-19 21:55 | DIAGNOSTIC IMAGING REPORT ---
PROCEDURE: ABDOMEN/PELVIS WITH CONTRAST CLINICAL INDICATION: ABDOMINAL PAIN TECHNIQUE: 135 ml of Isovue 300 were injected intravenously and axial images were obtained of the abdomen and pelvis with sagittal and coronal reformations. COMPARISON: 09/06/2015 and 08/23/2015. FINDINGS: ABDOMEN: Decreased thickening of the distal esophagus compared to prior studies. Interval cholecystectomy. Interval placement of [place] filter in the infrarenal inferior vena cava. Mild nonspecific bilateral perinephric stranding , chronic. Clear lung bases. Normal sized heart. No hiatal hernia. The liver, gallbladder, adrenal glands, kidneys, pancreas and spleen are normal. The abdominal aorta is normal in its course and caliber. Minor atherosclerosis. There are no suspicious calcifications, retroperitoneal adenopathy or masses. The stomach, upper bowel loops, and mesentery are normal. Intact anterior abdominal wall. No free fluid or inflammation. PELVIS: The appendix and pelvic small bowel loops are normal. Normal amount of stool in the colon and rectum. The prostate gland, seminal vesicles, urinary bladder, and pelvic vessels are normal. No adenopathy, free fluid, or pelvic mass. Degenerative change at L5-S1. IMPRESSION: 1. No acute process. 2. Interval cholecystectomy and placement of a [place] filter. 3. Discussed with Diana Trujillo in the emergency room. All CT scans at this facility use dose modulation, iterative reconstruction, and/or weight-based dosing when appropriate to reduce radiation dose to as low as reasonably achievable.
--- NOTE | 2016-07-19 23:24 | ED MAR SUMMARY ---
..... Medication Administration Record [facility] [address] [place] [address] Patient: DESHAUN QUEEN Visit ID: [id number] 56y, M Weight: 113.3 kg Height/Length: 75 in BMI: 31.2 ALLERGIES: Gabapentin Start 19:02 07/19/2016 Shayla Kraft R.N., Stop 21:16 07/19/2016 Fernando Newman Medication Administered: IV NS (SALINE), Dose: IV Fluids over 1 hour(s), Rate: 1000 mL/hr, Dispensed: 1000 mL bag, Site: #2 left AC. Medication Ordered: IV NS : initial bolus 1000 mL (1000 mL/hr), then none - (NOW). Given 19:02 07/19/2016 Shayla Kraft R.N. Medication Administered: TORADOL [IVP], Dose: 30 mg IVP over 2 minute(s), Site: #2 left AC. Medication Ordered: Toradol IV 30 mg (NOW).
--- NOTE | 2016-07-19 23:24 | ED DISCHARGE INSTRUCTIONS ---
Patient: DESHAUN QUEEN General Instructions [facility] VisitID: [id number] [address] [place], [place] [id number] 56y, M Registration Date/Time: 07/19/2016 Acute left lower quadrant abdominal pain of undetermined cause. Diarrhea INSTRUCTIONS (over the counter diarrhea medicine). Warnings: GENERAL WARNINGS: Return or contact your physician immediately if your condition worsens or changes unexpectedly, if not improving as expected, or if other problems arise. SPECIFICALLY, return if you develop pain in the abdomen, fever, the inability to keep fluids down, blood in vomitus, blood in diarrhea, fainting or lightheadedness. Prescription Medications: Bentyl 20 mg tablets: take 1 orally every 6 hours as needed. Dispense thirty (30). No refills. Substitution is permissible. Follow-up: Follow up with your doctor in about two days even if well. Call for an appointment. Summary of care provided to patient. Understanding of the discharge instructions verbalized by patient. Follow-up with: Benedicto Torres MD, Gastroenterology, , [address] [place] [address] Ave[address] , [place], [id number]; Mukesh Avina MD, Gastroenterology, , [address] [place] [address], [address], [place], [id number]; Megan Barker MD, Gastroenteroloy, , [address] [place] [address] [address], [place], [address]; Jamar Felix MD, Gastroenteroloy, , [address] [place] [address] [address], [place], [id number]; Rosalia Simms MD, Gastroenteroloy, , [address] [place] [address] [address], [place], [id number]; Theo Hull MD, General Surgeon, , [facility], [address] [place] [address] [address] [place] [id number] Follow up in about two days even if well. Call for an appointment. Summary of care provided to patient. ADDITIONAL INFORMATION Abdominal Pain,Uncertain Cause [Male] Based on your visit today, the exact cause of your abdominalpain is not clear. Your exam and tests do not indicate a dangerous cause at this time. However, the signs of a serious problem may take more time to appear. Although your evaluation was reassuring today, sometimes early in the course of many conditions, exam and lab tests can appear normal. Therefore, it is important for you to watch for any new symptoms or worsening of your condition. Causes It may not be obvious what caused your symptoms. Pay attention to things that do seem to make your symptoms worse or better and discuss this with your doctor when you follow up. Diagnosis The evaluation of abdominal pain in the emergency department may onlyrequire an exam by the doctor or it may include blood, urine or imaging studies, depending on many factors. Sometimes exams and tests can identify a cause but in many cases, a clear cause is not found. Further testing at follow up visits may help to suggest a clear diagnosis. Home Care Rest as much as possible until your next exam. Try to avoid any medications (unless otherwise directed by your doctor), foods, activities, or other factors that you may have contributed to your symptoms. Try to eat foods that you know that you have tolerated well in the past. Certain diets may be recommended for some conditions that cause abdominal pain. However, since the cause of your symptoms may not be clear, discuss your diet more with your primary care provider or specialist for further recommendations. Eating several small meals per day as opposed to 2 or 3 larger meals may help. Monitor closely for anything that may make your symptoms worse or better. Pay close attention to symptoms below that may indicate worsening of your condition. Follow Up and Precautions See your doctoras instructed or sooneror if your symptoms are not improving.In some cases, you may need more testing. When to Seek Medical Attention Contact your doctor or see medical attention ifany of the following occur: Pain is becoming worse You are unable to take your medications due to excessive vomiting Swelling of the abdomen Fever of 100.4F (38C) or higher, or as directed by your health care provider Blood in vomit or bowel movements (dark red or black color) Jaundice (yellow color of eyes and skin) New onset of weakness, dizziness or fainting New onset of chest, arm, back, neck or jaw pain Diarrhea, Uncertain Cause (Adult, Report Pending) Diarrhea has several possible causes. Commonstomach fluis caused by a virus. Food poisoning, bacteria or parasites are other causes for diarrhea. Only diarrhea caused by bacteria or parasites requires treatment with an antibiotic. Diarrhea from a virus or food poisoning improves with simple home treatment. A stool sample is needed to make the diagnosis of an infection with bacteria or parasites. Up to three stool specimens may be required to diagnose This may take up to two days to get the result. It may be necessary to wait until the stool test is complete to make the diagnosis and select the best antibiotic to prescribe. Home Care: If symptoms are severe, rest at home for the next 24 hours or until you are feeling better. You may use acetaminophen (Tylenol) or ibuprofen (Motrin, Advil) to control fever, unless another medicine was prescribed. [NOTE: If you have chronic liver or kidney disease or ever had a stomach ulcer or GI bleeding, talk with your doctor before using these medicines.] (Aspirin should never be used in anyone under 18 years of age who is ill with a fever. It may cause severe liver damage.) Avoid tobacco, caffeine and alcohol, which may worsen your symptoms. If anti-diarrhea medicine was prescribed, take this only as directed. Sometimes anti-diarrhea medicine can make your condition worse if the cause is an infectious diarrhea. Therefore, anti-diarrhea medicine should not be taken for this condition unless advised by your doctor. During The First 12-24 Hours follow the diet below: BEVERAGES: Sport drinks like Gatorade, soft drinks without caffeine; alcides tiffanie, mineral water (plain or flavored), decaffeinated tea and coffee. SOUPS: Clear broth, consomm and bouillon DESSERTS: Plain gelatin (Jell-O), popsicles and fruit juice bars. During The Next 24 Hours you may add the following to the above: Hot cereal, plain toast, bread, rolls, crackers Plain noodles, rice, mashed potatoes, chicken noodle or rice soup Unsweetened canned fruit (avoid pineapple), bananas Limit fat intake to less than 15 grams per day by avoiding margarine, butter, oils, mayonnaise, sauces, gravies, fried foods, peanut butter, meat, poultry and fish. Limit fiber; avoid raw or cooked vegetables, fresh fruits (except bananas) and bran cereals. Limit caffeine and chocolate. No spices or seasonings except salt. During The Next 24 Hours Gradually resume a normal diet, as you feel better and your symptoms lessen. Follow Up with your doctor or as advised if you are not improving over the next two days. If you were asked to bring a specimen from home, bring the sample on the day of collection. You may call in 2 days (or as directed) for the results. Get Prompt Medical Attention if any of the following occur: Increasing abdominal pain or constant lower right abdominal pain Continued vomiting (unable to keep liquids down) Frequent diarrhea (more than 5 times a day) Blood in vomit or stool (black or red color) Reduced oral intake Dark urine, reduced urine output Weakness, dizziness, fainting Drowsiness, confusion, stiff neck or seizure Fever of 100.4F (38C) oral or higher, not better with fever medication New rash Dicyclomine Hydrochloride Oral tablet What is this medicine? DICYCLOMINE (dye SYE klmagdi meen) is used to treat bowel problems including irritable bowel syndrome. How should I use this medicine? Take this medicine by mouth with a glass of water. Follow the directions on the prescription label. It is best to take this medicine on an empty stomach, 30 minutes to 1 hour before meals. Take your medicine at regular intervals. Do not take your medicine more often than directed. Talk to your commutator v ring assembler regarding the use of this medicine in children. Special care may be needed. While this drug may be prescribed for children as young as 6 months of age for selected conditions, precautions do apply. Patients over 65 years old may have a stronger reaction and need a smaller dose. What side effects may I notice from receiving this medicine? Side effects that you should report to your doctor or health care navigator as soon as possible: agitation, nervousness, confusion difficulty swallowing dizziness, drowsiness fast or slow heartbeat hallucinations pain or difficulty passing urine Side effects that usually do not require medical attention (report to your doctor or health care navigator if they continue or are bothersome): constipation headache nausea or vomiting sexual difficulty What may interact with this medicine? amantadine antacids benztropine digoxin disopyramide medicines for allergies, colds and breathing difficulties medicines for alzheimer's disease medicines for anxiety or sleeping problems medicines for depression or psychotic disturbances medicines for diarrhea medicines for pain metoclopramide tegaserod What if I miss a dose? If you miss a dose, take it as soon as you can. If it is almost time for your next dose, take only that dose. Do not take double or extra doses. Where should I keep my medicine? Keep out of the reach of children. Store at room temperature below 30 degrees C (86 degrees F). Protect from light. Throw away any unused medicine after the expiration date. What should I tell my health care provider before I take this medicine? They need to know if you have any of these conditions: difficulty passing urine esophagus problems or heartburn glaucoma heart disease, or previous heart attack myasthenia gravis prostate trouble stomach infection, or obstruction ulcerative colitis an unusual or allergic reaction to dicyclomine, other medicines, foods, dyes, or preservatives or trying to get breast-feeding What should I watch for while using this medicine? You may get drowsy, dizzy, or have blurred vision. Do not drive, use machinery, or do anything that needs mental alertness until you know how this medicine affects you. To reduce the risk of dizzy or fainting spells, do not sit or stand up quickly, especially if you are an older patient. Alcohol can make you more drowsy, avoid alcoholic drinks. Stay out of bright light and wear sunglasses if this medicine makes your eyes more sensitive to light. Avoid extreme heat (hot tubs, saunas). This medicine can cause you to sweat less than normal. Your body temperature could increase to dangerous levels, which may lead to heat stroke. Antacids can stop this medicine from working. If you get an upset stomach and want to take an antacid, make sure there is an interval of at least 1 to 2 hours before or after you take this medicine. Your mouth may get dry. Chewing sugarless gum or sucking hard candy, and drinking plenty of water may help. Contact your doctor if the problem does not go away or is severe. You have been given the following additional information: Abdominal Pain, Unknown Cause, (Male) Diarrhea, Unk Cause (Adult) Report Pendg Dicyclomine Hydrochloride Oral tablet (Electronically signed by Diana Trujillo A.R.N.P. 07/19/2016 22:25)
--- NOTE | 2016-07-19 23:24 | ED MED RECONCILIATION SUMMARY ---
Patient: DESHAUN QUEEN Medication Reconciliation Report [facility] VisitID: [id number] [address] [place] [address] 56y, M Registration Date/Time: 07/19/2016 Weight: 113.3 kg Height/Length: 75 in. BMI: 31.2 ALLERGIES: Gabapentin The patient's Home Medications are listed below: THE FOLLOWING MEDICATIONS NEED TO BE RECONCILED: Ambien 5 mg qhs Lisinopril Oral Mirtazapine Oral The source(s) of the original Home Medication information: Not obtained. The following Medications were given to the patient in the Emergency Department: IV NS IV Fluids bolus 0, then 1000 mL/hr, administered: 07/19/2016 7:02:00 PM Toradol [IVP] IVP 30 mg, administered: 07/19/2016 7:02:00 PM The following Medications were prescribed to the patient: Bentyl 20 mg tablets: take 1 orally every 6 hours as needed. Dispense thirty (30). No refills. Substitution is permissible. -- Diana Trujillo A.R.N.P.
--- NOTE | 2016-07-19 23:24 | ED MED RECONCILIATION SUMMARY ---
Patient: DESHAUN QUEEN Medication Reconciliation Report [facility] VisitID: [id number] [address] [place] [address] 56y, M Registration Date/Time: 07/19/2016 Weight: 113.3 kg Height/Length: 75 in. BMI: 31.2 ALLERGIES: Gabapentin The patient's Home Medications are listed below: THE FOLLOWING MEDICATIONS NEED TO BE RECONCILED: Ambien 5 mg qhs Lisinopril Oral Mirtazapine Oral The source(s) of the original Home Medication information: Not obtained. The following Medications were given to the patient in the Emergency Department: IV NS IV Fluids bolus 0, then 1000 mL/hr, administered: 07/19/2016 7:02:00 PM Toradol [IVP] IVP 30 mg, administered: 07/19/2016 7:02:00 PM The following Medications were prescribed to the patient: Bentyl 20 mg tablets: take 1 orally every 6 hours as needed. Dispense thirty (30). No refills. Substitution is permissible. -- Diana Trujillo A.R.N.P.
--- NOTE | 2016-07-19 23:24 | ED DISCHARGE INSTRUCTIONS ---
Patient: DESHAUN QUEEN General Instructions [facility] VisitID: [id number] [address] [place], [place] [id number] 56y, M Registration Date/Time: 07/19/2016 Acute left lower quadrant abdominal pain of undetermined cause. Diarrhea INSTRUCTIONS (over the counter diarrhea medicine). Warnings: GENERAL WARNINGS: Return or contact your physician immediately if your condition worsens or changes unexpectedly, if not improving as expected, or if other problems arise. SPECIFICALLY, return if you develop pain in the abdomen, fever, the inability to keep fluids down, blood in vomitus, blood in diarrhea, fainting or lightheadedness. Prescription Medications: Bentyl 20 mg tablets: take 1 orally every 6 hours as needed. Dispense thirty (30). No refills. Substitution is permissible. Follow-up: Follow up with your doctor in about two days even if well. Call for an appointment. Summary of care provided to patient. Understanding of the discharge instructions verbalized by patient. Follow-up with: Benedicto Torres MD, Gastroenterology, , [address] [place] [address] Ave[address] , [place], [id number]; Mukesh Avina MD, Gastroenterology, , [address] [place] [address], [address], [place], [address]; Megan Barker MD, Gastroenteroloy, , [address] [place] [address] [address], [place], [address]; Jamar Felix MD, Gastroenteroloy, , [address] [place] [address] [address], [place], [address]; Rosalia Simms MD, Gastroenteroloy, , [address] [place] [address] [address], [place], [address]; Theo Hull MD, General Surgeon, , [facility], [address] [place] [address] [address] [id number] Follow up in about two days even if well. Call for an appointment. Summary of care provided to patient. ADDITIONAL INFORMATION Abdominal Pain,Uncertain Cause [Male] Based on your visit today, the exact cause of your abdominalpain is not clear. Your exam and tests do not indicate a dangerous cause at this time. However, the signs of a serious problem may take more time to appear. Although your evaluation was reassuring today, sometimes early in the course of many conditions, exam and lab tests can appear normal. Therefore, it is important for you to watch for any new symptoms or worsening of your condition. Causes It may not be obvious what caused your symptoms. Pay attention to things that do seem to make your symptoms worse or better and discuss this with your doctor when you follow up. Diagnosis The evaluation of abdominal pain in the emergency department may onlyrequire an exam by the doctor or it may include blood, urine or imaging studies, depending on many factors. Sometimes exams and tests can identify a cause but in many cases, a clear cause is not found. Further testing at follow up visits may help to suggest a clear diagnosis. Home Care Rest as much as possible until your next exam. Try to avoid any medications (unless otherwise directed by your doctor), foods, activities, or other factors that you may have contributed to your symptoms. Try to eat foods that you know that you have tolerated well in the past. Certain diets may be recommended for some conditions that cause abdominal pain. However, since the cause of your symptoms may not be clear, discuss your diet more with your primary care provider or specialist for further recommendations. Eating several small meals per day as opposed to 2 or 3 larger meals may help. Monitor closely for anything that may make your symptoms worse or better. Pay close attention to symptoms below that may indicate worsening of your condition. Follow Up and Precautions See your doctoras instructed or sooneror if your symptoms are not improving.In some cases, you may need more testing. When to Seek Medical Attention Contact your doctor or see medical attention ifany of the following occur: Pain is becoming worse You are unable to take your medications due to excessive vomiting Swelling of the abdomen Fever of 100.4F (38C) or higher, or as directed by your health care provider Blood in vomit or bowel movements (dark red or black color) Jaundice (yellow color of eyes and skin) New onset of weakness, dizziness or fainting New onset of chest, arm, back, neck or jaw pain Diarrhea, Uncertain Cause (Adult, Report Pending) Diarrhea has several possible causes. Commonstomach fluis caused by a virus. Food poisoning, bacteria or parasites are other causes for diarrhea. Only diarrhea caused by bacteria or parasites requires treatment with an antibiotic. Diarrhea from a virus or food poisoning improves with simple home treatment. A stool sample is needed to make the diagnosis of an infection with bacteria or parasites. Up to three stool specimens may be required to diagnose This may take up to two days to get the result. It may be necessary to wait until the stool test is complete to make the diagnosis and select the best antibiotic to prescribe. Home Care: If symptoms are severe, rest at home for the next 24 hours or until you are feeling better. You may use acetaminophen (Tylenol) or ibuprofen (Motrin, Advil) to control fever, unless another medicine was prescribed. [NOTE: If you have chronic liver or kidney disease or ever had a stomach ulcer or GI bleeding, talk with your doctor before using these medicines.] (Aspirin should never be used in anyone under 18 years of age who is ill with a fever. It may cause severe liver damage.) Avoid tobacco, caffeine and alcohol, which may worsen your symptoms. If anti-diarrhea medicine was prescribed, take this only as directed. Sometimes anti-diarrhea medicine can make your condition worse if the cause is an infectious diarrhea. Therefore, anti-diarrhea medicine should not be taken for this condition unless advised by your doctor. During The First 12-24 Hours follow the diet below: BEVERAGES: Sport drinks like Gatorade, soft drinks without caffeine; alcides tiffanie, mineral water (plain or flavored), decaffeinated tea and coffee. SOUPS: Clear broth, consomm and bouillon DESSERTS: Plain gelatin (Jell-O), popsicles and fruit juice bars. During The Next 24 Hours you may add the following to the above: Hot cereal, plain toast, bread, rolls, crackers Plain noodles, rice, mashed potatoes, chicken noodle or rice soup Unsweetened canned fruit (avoid pineapple), bananas Limit fat intake to less than 15 grams per day by avoiding margarine, butter, oils, mayonnaise, sauces, gravies, fried foods, peanut butter, meat, poultry and fish. Limit fiber; avoid raw or cooked vegetables, fresh fruits (except bananas) and bran cereals. Limit caffeine and chocolate. No spices or seasonings except salt. During The Next 24 Hours Gradually resume a normal diet, as you feel better and your symptoms lessen. Follow Up with your doctor or as advised if you are not improving over the next two days. If you were asked to bring a specimen from home, bring the sample on the day of collection. You may call in 2 days (or as directed) for the results. Get Prompt Medical Attention if any of the following occur: Increasing abdominal pain or constant lower right abdominal pain Continued vomiting (unable to keep liquids down) Frequent diarrhea (more than 5 times a day) Blood in vomit or stool (black or red color) Reduced oral intake Dark urine, reduced urine output Weakness, dizziness, fainting Drowsiness, confusion, stiff neck or seizure Fever of 100.4F (38C) oral or higher, not better with fever medication New rash Dicyclomine Hydrochloride Oral tablet What is this medicine? DICYCLOMINE (dye SYE klmagdi meen) is used to treat bowel problems including irritable bowel syndrome. How should I use this medicine? Take this medicine by mouth with a glass of water. Follow the directions on the prescription label. It is best to take this medicine on an empty stomach, 30 minutes to 1 hour before meals. Take your medicine at regular intervals. Do not take your medicine more often than directed. Talk to your accounting administrator regarding the use of this medicine in children. Special care may be needed. While this drug may be prescribed for children as young as 6 months of age for selected conditions, precautions do apply. Patients over 65 years old may have a stronger reaction and need a smaller dose. What side effects may I notice from receiving this medicine? Side effects that you should report to your doctor or health patient care as soon as possible: agitation, nervousness, confusion difficulty swallowing dizziness, drowsiness fast or slow heartbeat hallucinations pain or difficulty passing urine Side effects that usually do not require medical attention (report to your doctor or health patient care if they continue or are bothersome): constipation headache nausea or vomiting sexual difficulty What may interact with this medicine? amantadine antacids benztropine digoxin disopyramide medicines for allergies, colds and breathing difficulties medicines for alzheimer's disease medicines for anxiety or sleeping problems medicines for depression or psychotic disturbances medicines for diarrhea medicines for pain metoclopramide tegaserod What if I miss a dose? If you miss a dose, take it as soon as you can. If it is almost time for your next dose, take only that dose. Do not take double or extra doses. Where should I keep my medicine? Keep out of the reach of children. Store at room temperature below 30 degrees C (86 degrees F). Protect from light. Throw away any unused medicine after the expiration date. What should I tell my health care provider before I take this medicine? They need to know if you have any of these conditions: difficulty passing urine esophagus problems or heartburn glaucoma heart disease, or previous heart attack myasthenia gravis prostate trouble stomach infection, or obstruction ulcerative colitis an unusual or allergic reaction to dicyclomine, other medicines, foods, dyes, or preservatives or trying to get breast-feeding What should I watch for while using this medicine? You may get drowsy, dizzy, or have blurred vision. Do not drive, use machinery, or do anything that needs mental alertness until you know how this medicine affects you. To reduce the risk of dizzy or fainting spells, do not sit or stand up quickly, especially if you are an older patient. Alcohol can make you more drowsy, avoid alcoholic drinks. Stay out of bright light and wear sunglasses if this medicine makes your eyes more sensitive to light. Avoid extreme heat (hot tubs, saunas). This medicine can cause you to sweat less than normal. Your body temperature could increase to dangerous levels, which may lead to heat stroke. Antacids can stop this medicine from working. If you get an upset stomach and want to take an antacid, make sure there is an interval of at least 1 to 2 hours before or after you take this medicine. Your mouth may get dry. Chewing sugarless gum or sucking hard candy, and drinking plenty of water may help. Contact your doctor if the problem does not go away or is severe. You have been given the following additional information: Abdominal Pain, Unknown Cause, (Male) Diarrhea, Unk Cause (Adult) Report Pendg Dicyclomine Hydrochloride Oral tablet (Electronically signed by Diana Trujillo A.R.N.P. 07/19/2016 22:25)
--- NOTE | 2016-07-19 23:24 | ED MAR SUMMARY ---
..... Medication Administration Record Formerly [facility] [address] [place] [address] Patient: DESHAUN QUEEN Visit ID: [id number] 56y, M Weight: 113.3 kg Height/Length: 75 in BMI: 31.2 ALLERGIES: Gabapentin Start 19:02 07/19/2016 Shayla Kraft R.N., Stop 21:16 07/19/2016 Fernando Newman Medication Administered: IV NS (SALINE), Dose: IV Fluids over 1 hour(s), Rate: 1000 mL/hr, Dispensed: 1000 mL bag, Site: #2 left AC. Medication Ordered: IV NS : initial bolus 1000 mL (1000 mL/hr), then none - (NOW). Given 19:02 07/19/2016 Shayla Kraft R.N. Medication Administered: TORADOL [IVP], Dose: 30 mg IVP over 2 minute(s), Site: #2 left AC. Medication Ordered: Toradol IV 30 mg (NOW).
== END 2016-07-19 22:08 | disposition home or self-care (01) ==
LOC: ED SRH 18:01
DX: R10.32 Left lower quadrant pain (principal); R19.7 Diarrhea, unspecified; F17.210 Nicotine dependence, cigarettes, uncomplicated; I10 Essential (primary) hypertension; K21.9 Gastro-esophageal reflux disease without esophagitis; E11.9 Type 2 diabetes mellitus without complications
CPT/HCPCS: 90004; 90100; 92010; 92235; 92530; 95059